=== PATIENT | male | born 1965 | race Caucasian/White ===

== ENCOUNTER 2017-06-13 11:58 | Observation (INO) | payer MEDICARE, SELFPAY | END 2017-06-15 18:15 | disposition home or self-care (01) | PROVIDERS: Admitting Provider Family Medicine; Emergency Provider Emergency Medicine; Family Provider Family Medicine; Visit Provider Family Medicine | DX: J18.9 Pneumonia, unspecified organism (principal); R06.09 Other forms of dyspnea; S22.42XA Multiple fractures of ribs, left side, initial encounter for closed fracture; W18.30XA Fall on same level, unspecified, initial encounter; I95.9 Hypotension, unspecified; I69.398 Other sequelae of cerebral infarction; Z86.718 Personal history of other venous thrombosis and embolism; Z79.01 Long term (current) use of anticoagulants | CPT/HCPCS: G8990; G8991; G8992; 36415; 70450; 71101; 72125; 72170; 73030; 80048; 80053; 80185; 82272; 83605; 85025; 85610; 86738; 87040; 87486; 87581; 87633; 87798; 93005; 94640; 94760; 96365; 96366; 96375; 97116; 97162; 99285; G0328; G0378 ==

== ENCOUNTER 2017-07-10 11:08 | Inpatient (IN) | payer MEDICARE, SELFPAY ==
[2017-07-10 09:43] VITALS: BMI 26.4
[2017-07-10 09:49] VITALS: BP 125/83; PULSE 107; RESP 18; TEMP 36.9; O2SAT 94; BMI 25.7
--- NOTE | 2017-07-10 10:06 | XR_ITS ---
XR chest 2V HISTORY: ITS.REASON: weakness ORDERING PHYSICIAN: Guru Islas MD PATIENT AGE: 51 years COMPARISON: 06/13/2017 FINDINGS: The cardiomediastinal silhouette and pulmonary vascularity are within normal limits. There are atelectatic changes in the right lung base with slightly elevated right hemidiaphragm. This was present previously. Atelectasis or infiltrate is present in the left lower lobe and has developed since the previous exam.. There is exaggeration of thoracic kyphosis with mild wedging of several dorsal vertebral bodies at T5-T10 age-indeterminate possibly chronic. No previous exams are available for comparison. There is moderate wedging involving what appears to represent L1 which appears increased compared to 10/15/2015.. IMPRESSION: 1. Atelectasis or infiltrate in the lingula with chronic atelectatic changes in the right lower lobe. 2. Multiple wedge compression changes of the thoracic lumbar spine age indeterminate
--- NOTE | 2017-07-10 10:06 | CT_ITS ---
CT head/brain wo con HISTORY: Weakness, falling, history of stroke ORDERING PHYSICIAN: Guru Islas MD PATIENT AGE: 51 years COMPARISON: 06/13/2017 TECHNIQUE: Axial images obtained without contrast. Brain and bone windows reviewed. FINDINGS: No midline shift, mass effect, intracranial hemorrhage, hydrocephalus, or extra-axial fluid collection is evident. There is mild diffuse atrophy. Encephalomalacia changes are present in the left temporal and frontal lobe similar to the previous exam. There are mild encephalomalacic changes in the right frontal lobe. No intra or extra-axial hemorrhage is evident. There are postsurgical changes in the left facial bones with thickening of the left maxillary sinus. IMPRESSION: 1. No acute intracranial findings. 2. Encephalomalacic changes on the left consistent with old infarction. 3. Postsurgical changes of left facial bones with mucosal thickening of the left maxillary sinus
--- NOTE | 2017-07-10 10:13 | HMH.EDWEAK ---
ED Disposition Clinical Impression: Dehydration, Atelectasis of both lungs, Weakness, Elevated CK Disposition: Still a Patient Condition on Discharge: Good Referrals: Abelino Waggoner [Primary Care Provider] - Guru Islas MD [Staff Physician] - - Critical Care Critical Care Time: No Attestation: On , the high probability of a clinically significant, sudden or life threatening deterioration of the following system(s) required my full and direct attention, intervention and personal management. The time I documented below is in addition to time spent performing reported procedures but includes the following listed in this critical care notation. Medical Decision Making - Medical Records Medical records reviewed: Yes: I reviewed the patient's medical records. Vital Signs: 07/10/17 09:49 Temperature 98.5 F Temperature Source Oral Pulse Rate [Right Brachial] 107 H Respiratory Rate 18 Blood Pressure [Right Arm] 125/83 Blood Pressure Mean [Right Arm] 97 Blood Pressure Source [Right Arm] Automatic Cuff Blood Pressure Position [Right Arm] Sitting 02 Sat by Pulse Oximetry 94 L Oxygen Delivery Method Room Air - Lab Data Lab results reviewed: Yes: I reviewed the patient's lab results. Lab Results 07/10/17 10:00: PT 30.4 H, INR 2.79 H 07/10/17 10:06: Specimen Source R radial, O2 % Room air, ABG pH 7.42, ABG pCO2 33.1 L, ABG pO2 66.7 L, ABG HCO3 21.1 L, ABG Total CO2 22.1 L, ABG O2 Saturation 94, ABG Base Excess -3.3 L, Anastacio Test Acceptable 07/10/17 10:06: WBC 13.9 H, RBC 5.31, Hgb 15.2, Hct 45.3, MCV 85.1, MCH 28.5, MCHC 33.5, RDW 14.0, Plt Count 217, MPV 8.0, Neut % (Auto) 88.0 H, Lymph % (Auto) 5.5 L, [place] % (Auto) 5.9, Eos % (Auto) 0.5, Baso % (Auto) 0.2, Neut # (Auto) 12.2 H, Lymph # (Auto) 0.8, [place] # (Auto) 0.8, Eos # (Auto) 0.1, Baso # (Auto) 0.0, Total Counted 100, Neutrophils % (Manual) 85 H, Lymphocytes % (Manual) 9 L, Monocytes % (Manual) 6, Platelet Estimate Normal, RBC Morphology Normal 07/10/17 10:20: Sodium 147 H, Potassium 3.7, Chloride 111 H, Carbon Dioxide 28, Anion Gap 11.7, BUN 19 H, Creatinine 1.25, Estimated Creat Clear 83, Estimated GFR 60, Est GFR ( Amer) 73, Glucose 71 L, Calcium 8.6, Total Bilirubin 0.4, AST 33, ALT 35, Alkaline Phosphatase 384 H, Total Creatine Kinase 1327 H*, CK-MB (CK-2) < 0.5, CK-MB (CK-2) Rel Index 0.0, Troponin I < 0.02, Total Protein 7.7, Albumin 3.5, Globulin 4.2 H, Albumin/Globulin Ratio 0.8 L, Phenytoin 9.0 L 07/10/17 11:10: Urine Color Yellow, Urine Appearance Clear, Urine pH 7.0, Ur Specific [place] 1.020, Urine Protein Trace, Urine Glucose (UA) Negative, Urine Ketones Negative, Urine Blood 1+, Urine Nitrate Negative, Urine Bilirubin Negative, Urine Urobilinogen 0.2, Ur Leukocyte Esterase Negative, Urine RBC None, Urine WBC None, Ur Squamous Epith Cells Occasional, Urine Bacteria Trace Result diagrams: 07/10/17 10:06 07/10/17 10:20 Orders (Tests/Meds): ED MEDICATIONS Generic Name Dose Route Start Last Admin Trade Name Freq PRN Reason Stop Dose Admin Ceftriaxone Sodium 1 gm/ 50 mls @ 100 mls/hr 07/10/17 12:12 Sodium Chloride IV 07/10/17 12:41 ONCE ONE Discontinued Medications Generic Name Dose Route Start Last Admin Trade Name Freq PRN Reason Stop Dose Admin Sodium Chloride 1,000 mls @ 999 mls/hr 07/10/17 10:15 07/10/17 11:04 Sod Chloride 0.9% 1000ml Bag IV 07/10/17 11:15 999 mls/hr .[id number] BRIAN Administration ORDERS Category Date Time Status CT Request Scan Stat Cat Scan 07/10/17 10:[address] head/brain wo con Stat Cat Scan 07/10/17 10:06 Ordered XR chest 2V Stat Exams 07/10/17 10:06 Taken Lactic Acid Stat Lab 07/10/17 12:11 Ordered Blood Culture Stat Micro 07/10/17 12:11 Ordered ECG Request by /Sri Stat Y 07/10/17 10:06 Ordered - Radiology Data #1 Image(s): Chest Image Reviewed: Yes I reviewed the patient's radiology image Chest x-ray was bibasilar atelectasis cannot exc
--- NOTE | 2017-07-10 10:19 | ED_ITS ---
ED Disposition Clinical Impression: Dehydration, Atelectasis of both lungs, Weakness, Elevated CK Disposition: Still a Patient Condition on Discharge: Good Referrals: Abelino Waggoner [Primary Care Provider] - Guru Islas MD [Staff Physician] - - Critical Care Critical Care Time: No Attestation: On , the high probability of a clinically significant, sudden or life threatening deterioration of the following system(s) required my full and direct attention, intervention and personal management. The time I documented below is in addition to time spent performing reported procedures but includes the following listed in this critical care notation. Medical Decision Making - Medical Records Medical records reviewed: Yes: I reviewed the patient's medical records. Vital Signs: 07/10/17 09:49 Temperature 98.5 F Temperature Source Oral Pulse Rate [Right Brachial] 107 H Respiratory Rate 18 Blood Pressure [Right Arm] 125/83 Blood Pressure Mean [Right Arm] 97 Blood Pressure Source [Right Arm] Automatic Cuff Blood Pressure Position [Right Arm] Sitting 02 Sat by Pulse Oximetry 94 L Oxygen Delivery Method Room Air - Lab Data Lab results reviewed: Yes: I reviewed the patient's lab results. Lab Results 07/10/17 10:00: PT 30.4 H, INR 2.79 H 07/10/17 10:06: Specimen Source R radial, O2 % Room air, ABG pH 7.42, ABG pCO2 33.1 L, ABG pO2 66.7 L, ABG HCO3 21.1 L, ABG Total CO2 22.1 L, ABG O2 Saturation 94, ABG Base Excess -3.3 L, Anastacio Test Acceptable 07/10/17 10:06: WBC 13.9 H, RBC 5.31, Hgb 15.2, Hct 45.3, MCV 85.1, MCH 28.5, MCHC 33.5, RDW 14.0, Plt Count 217, MPV 8.0, Neut % (Auto) 88.0 H, Lymph % (Auto ) 5.5 L, [place] % (Auto) 5.9, Eos % (Auto) 0.5, Baso % (Auto) 0.2, Neut # (Auto) 12.2 H, Lymph # (Auto) 0.8, [place] # (Auto) 0.8, Eos # (Auto) 0.1, Baso # (Auto) 0.0, Total Counted 100, Neutrophils % (Manual) 85 H, Lymphocytes % (Manual) 9 L , Monocytes % (Manual) 6, Platelet Estimate Normal, RBC Morphology Normal 07/10/17 10:20: Sodium 147 H, Potassium 3.7, Chloride 111 H, Carbon Dioxide 28, Anion Gap 11.7, BUN 19 H, Creatinine 1.25, Estimated Creat Clear 83, Estimated GFR 60, Est GFR ( Amer) 73, Glucose 71 L, Calcium 8.6, Total Bilirubin 0.4, AST 33, ALT 35, Alkaline Phosphatase 384 H, Total Creatine Kinase 1327 H*, CK-MB (CK-2) < 0.5, CK-MB (CK-2) Rel Index 0.0, Troponin I < 0.02, Total Protein 7.7, Albumin 3.5, Globulin 4.2 H, Albumin/Globulin Ratio 0.8 L, Phenytoin 9.0 L 07/10/17 11:10: Urine Color Yellow, Urine Appearance Clear, Urine pH 7.0, Ur Specific [place] 1.020, Urine Protein Trace, Urine Glucose (UA) Negative, Urine Ketones Negative, Urine Blood 1+, Urine Nitrate Negative, Urine Bilirubin Negative, Urine Urobilinogen 0.2, Ur Leukocyte Esterase Negative, Urine RBC None , Urine WBC None, Ur Squamous Epith Cells Occasional, Urine Bacteria Trace Result diagrams: 07/10/17 10:06 07/10/17 10:20 Orders (Tests/Meds): ED MEDICATIONS Generic Name Dose Route Start Last Admin Trade Name Freq PRN Reason Stop Dose Admin Ceftriaxone Sodium 1 gm/ 50 mls @ 100 mls/hr 07/10/17 12:12 Sodium Chloride IV 07/10/17 12:41 ONCE ONE Discontinued Medications Generic Name Dose Route Start Last Admin Trade Name Freq PRN Reason Stop Dose Admin Sodium Chloride 1,000 mls @ 999 mls/hr 07/10/17 10:15 07/10/17 11:04 Sod Chloride 0.9% 1000ml Bag IV 07/10/17 11:15 999 mls/hr
[2017-07-10 10:35] LABS: Basophils % 0.2 % (0.1-2.0); Eosinophils # 0.1 K/mm3 (0.0-0.4); Eosinophils % 0.5 % (0.1-12.0); Hematocrit 45.3 % (42.0-52.0); Hemoglobin 15.2 g/dL (14.1-18.0); Lymphocytes # 0.8 K/mm3 (0.7-4.5); Lymphocytes % 5.5 K/mm3 (10-50); Mean Corpuscular HGB Conc 33.5 g/dL (31.8-35.4); Mean Corpuscular Hemoglobin 28.5 pg (27.0-31.2); Mean Corpuscular Volume 85.1 fl (80-94); Monocytes # 0.8 K/mm3 (0.1-1.0); Monocytes % 5.9 % (1.7-9.3); Neutrophils # 12.2 K/mm3 (1.8-7.8); Platelet Count 217 K/mm3 (142-424); Red Blood Count 5.31 M/mm3 (4.60-6.20); White Blood Count 13.9 K/mm3 (4.8-10.8)
[2017-07-10 10:37] LABS: MANUAL DIFFERENTIAL MANUAL DIFFERENTIAL (MANUAL DIFF)
[2017-07-10 10:42] LABS: INR 2.79 (0.9-1.1); Prothrombin Time 30.4 seconds (9.4-11.8)
[2017-07-10 11:01] LABS: Lymphocytes % 9 % (10-50); Monocytes % 6 % (2-9); Neutrophils % 85 % (42-76); Platelet Estimate Normal; RBC Morphology Normal; Total Cells Counted 100
[2017-07-10 11:07] LABS: ABG Base Excess -3.3 mmol/L (-2.4-2.3); ABG HCO3 21.1 mmhg (22.0-26.0); ABG Oxygen Saturation 94 % (90-100); ABG PCO2 33.1 mmhg (35.0-45.0); ABG PH 7.42 mmol/L (7.35-7.45); ABG PO2 66.7 mmhg (80-100); ABG TCO2 22.1 mmhg (23-27)
[2017-07-10 11:09] LABS: Allen's Test ACCEPTABLE; Oxygen ROOM AIR %; Source R RADIAL
[2017-07-10 11:24] LABS: Appearance,Urine CLEAR (Clear); Bilirubin,Urine Negative (Negative); Blood, Urine 1+ (Negative); Color,Urine YELLOW (Yellow); Glucose,Urine (UA) Negative (Negative); Ketones,Urine Negative (Negative); Leukocyte Esterase,Urine Negative (Negative); Microscopic, Urine URINE MICROSCOPIC (MICROSCOPIC); Nitrate,Urine Negative (Negative); Protein,Urine TRACE (Negative); Urobilinogen,Urine 0.2 EU/dl (0.2)
[2017-07-10 11:31] LABS: Alanine Aminotransferase 35 U/L (12-78); Albumin Level 3.5 gm/dL (3.4-5.0); Albumin/Globulin Ratio 0.8 (1.1-1.8); Alkaline Phosphatase 384 U/L (46-116); Anion Gap 11.7 mEq/L (5-15); Bilirubin,Total 0.4 mg/dL (0.2-1.0); Blood Urea Nitrogen 19 mg/dL (7-18); Calcium 8.6 mg/dL (8.5-10.1); Carbon Dioxide 28 mmol/L (21.0-32.0); Chloride 111 mmol/L (98-107); Creatinine Clearance Estimated 83 mL/min (0-300); Creatinine,Serum 1.25 mg/dL (0.70-1.30); Estimated Glomerular Filt Rate 60 ml/min (>60); GFR (African American) 73 ML/MIN (>60); Globulin 4.2 gm/dl (1.3-3.2); Glucose 71 mg/dL (74-106); Sodium 147 mmol/L (136-145); Total Protein,Serum 7.7 gm/dL (6.4-8.2); Troponin I < 0.02 ng/ml (0.00-0.06)
[2017-07-10 11:33] LABS: Creatine Kinase 1327 U/L (39-308); Creatine Kinase MB < 0.5 mg/ml (0.0-3.6); Potassium 3.7 mmoL/L (3.5-5.1)
[2017-07-10 11:34] LABS: Aspartate Amino Transferase 33 U/L (15-37)
[2017-07-10 11:46] LABS: Bacteria,Urine Trace /lpf; Squamous Epithelial Cell,Urine Occasional #/hpf (0-5)
[2017-07-10 12:45] VITALS: BP 132/75; PULSE 72; RESP 18; O2SAT 98
[2017-07-10 12:59] LABS: Lactic Acid 1.6 mmol/L (0.4-2.0)
[2017-07-10 13:09] VITALS: BP 107/69; PULSE 103; RESP 18; TEMP 36.9; O2SAT 98; BMI 24.8
[2017-07-10 13:54] LABS: Troponin I < 0.02 ng/ml (0.00-0.06)
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
[2017-07-10 19:26] LABS: Troponin I < 0.02 ng/ml (0.00-0.06)
[2017-07-10 20:00] VITALS: BP 93/59; PULSE 94; RESP 18; TEMP 36.4; O2SAT 100
[2017-07-10 21:14] LABS: Mycoplasma Pneumo IGM (Rapid) Non-Reactive (Non-Reactiv)
[2017-07-10 23:53] VITALS: PULSE 88
[2017-07-10 23:54] VITALS: PULSE 88
[2017-07-11] VITALS (8 sets, daily range): BP systolic 94–106; BP diastolic 60–68; PULSE 75–96; RESP 16–20; TEMP 36.3–36.7; O2SAT 95–100; BMI 24.9
--- NOTE | 2017-07-11 04:44 | PC.NURSE ---
PT HAS SLEPT. WEARING HOME CPAP. NO COMPLAINTS. VOIDING PER URINAL.
[2017-07-11 06:57] LABS: Anion Gap 11.6 mEq/L (5-15); Basophils % 0.4 % (0.1-2.0); Blood Urea Nitrogen 14 mg/dL (7-18); Carbon Dioxide 26 mmol/L (21.0-32.0); Chloride 113 mmol/L (98-107); Creatinine Clearance Estimated 106 mL/min (0-300); Creatinine,Serum 0.97 mg/dL (0.70-1.30); Eosinophils # 0.2 K/mm3 (0.0-0.4); Estimated Glomerular Filt Rate 81 ml/min (>60); GFR (African American) 98 ML/MIN (>60); Glucose 102 mg/dL (74-106); Lymphocytes # 1.3 K/mm3 (0.7-4.5); Lymphocytes % 15.3 K/mm3 (10-50); Mean Corpuscular HGB Conc 33.7 g/dL (31.8-35.4); Mean Corpuscular Hemoglobin 28.2 pg (27.0-31.2); Mean Corpuscular Volume 83.9 fl (80-94); Monocytes # 0.6 K/mm3 (0.1-1.0); Monocytes % 6.6 % (1.7-9.3); Neutrophils # 6.6 K/mm3 (1.8-7.8); Neutrophils % 75.6 % (37.0-80.0); Platelet Count 192 K/mm3 (142-424); Potassium 3.6 mmoL/L (3.5-5.1); Red Blood Count 4.53 M/mm3 (4.60-6.20); Red Cell Distribution Width 14.2 % (11.5-17.5); Sodium 147 mmol/L (136-145); White Blood Count 8.7 K/mm3 (4.8-10.8)
[2017-07-11 06:58] LABS: INR 3.25 (0.9-1.1); Prothrombin Time 35.5 seconds (9.4-11.8)
--- NOTE | 2017-07-11 07:10 | HMH.PHAVTE ---
[facility] Pharmacy VTE Monitoring - Patient Demographics Admission date: 07/11/17 Report Date: 07/11/17 Time: 07:10 Allergies/Adverse Reactions: Patient Allergies No Known Allergies Allergy (Verified 07/10/17 10:49) Height: 1.85 m Weight: 85.389 kg Patient Problems: Current Active Problems Dehydration (Acute) Atelectasis of both lungs (Acute) Weakness (Acute) Elevated CK (Acute) Pneumonia (Acute) Seizure disorder (Chronic) History of traumatic brain injury (Acute) History of DVT (deep vein thrombosis) (Chronic) Falls (Acute) - VTE Risk Labs: VTE Related Lab Results Hgb 15.2 g/dL (14.1-18.0) 07/10/17 10:06 Hct 45.3 % (42.0-52.0) 07/10/17 10:06 Plt Count 217 K/mm3 (142-424) 07/10/17 10:06 PT 35.5 seconds (9.4-11.8) H 07/11/17 06:05 INR 3.25 (0.9-1.1) H 07/11/17 06:05 BUN 14 mg/dL (7-18) D 07/11/17 06:05 Creatinine 0.97 mg/dL (0.70-1.30) D 07/11/17 06:05 Estimated Creat Clear 106 mL/min (0-300) 07/11/17 06:05 Was VTE Risk Assessment Performed: Yes VTE Score: 1 - Prophylaxis VTE Prophylaxis Ordered?: Yes Pharmacologic Type: Warfarin - VTE Diagnosis Confirmed Treatment or plan recommended: Continue Current Treatment
[2017-07-11 07:19] LABS: Hemoglobin 12.7 g/dL (14.1-18.0)
--- NOTE | 2017-07-11 09:22 | HMH.ACPN2 ---
<Zuly Goodman - Last Filed: 07/11/17 09:30> Internal Medicine - PN: Subj *Date: 07/11/17 *Time: 09:30 Interval history: Patient states he slept; uses CPAP; eating without problems; voiding QS; has not been OOB; Sister called ([phone]) and would like to have additional testing done-Barium Swallow and speech eval Exam Vital signs and Labs for Last 24 Hours: Temp Pulse Resp BP Pulse Ox 98.1 F 84 20 104/68 98 07/11/17 08:20 07/11/17 08:20 07/11/17 08:20 07/11/17 08:20 07/11/17 08:20 Laboratory Results - last 24 hr 07/11/17 06:05: PT 35.5 H, INR 3.25 H 07/11/17 06:05: WBC 8.7 D, RBC 4.53 L, Hgb 12.7 L D, Hct 38.0 L, MCV 83.9, MCH 28.2, MCHC 33.7, RDW 14.2, Plt Count 192, MPV 8.0, Neut % (Auto) 75.6, Lymph % (Auto) 15.3, [place] % (Auto) 6.6, Eos % (Auto) 2.0, Baso % (Auto) 0.4, Neut # (Auto) 6.6, Lymph # (Auto) 1.3, [place] # (Auto) 0.6, Eos # (Auto) 0.2, Baso # (Auto) 0.0 07/11/17 06:05: Sodium 147 H, Potassium 3.6, Chloride 113 H, Carbon Dioxide 26, Anion Gap 11.6, BUN 14 D, Creatinine 0.97 D, Estimated Creat Clear 106, Estimated GFR 81, Est GFR ( Amer) 98 D, Glucose 102 D I & O for Last 24 hours: Intake & Output 07/08/17 07/09/17 07/10/17 07/11/17 11:59 11:59 11:59 11:59 Intake Total 1298 / 2019 Balance 1299 / 1369 Weight 188 lb 4.008 oz - Constitutional Comments: NAD - *Routine Respiratory Exam Present: CTA bilaterally. Absent: accessory muscle use - *Routine Cardiovascular Exam Present: RRR - *Routine Abdominal Exam Present: soft, normoactive bowel sounds. Absent: tenderness, distended, guarding - *Routine Extremities Exam Absent: edema, calf tenderness - *Routine Neurological Exam Present: alert, oriented X3 Assessment and Plan (1) Pneumonia Current visit: Yes Status: Acute Category: Medical Code(s): J18.9 - Pneumonia, unspecified organism (2) Seizure disorder Current visit: Yes Status: Chronic Category: Medical Code(s): G40.909 - Epilepsy, unspecified, not intractable, without status epilepticus (3) History of traumatic brain injury Current visit: Yes Status: Acute Category: Medical Code(s): Z87.820 - Personal history of traumatic brain injury (4) History of DVT (deep vein thrombosis) Current visit: Yes Status: Chronic Category: Medical Code(s): Z86.718 - Personal history of other venous thrombosis and embolism (5) Falls Current visit: Yes Status: Acute Category: Medical Code(s): W19.XXXA - Unspecified fall, initial encounter (6) Atelectasis of both lungs Current visit: Yes Status: Acute Category: Medical Code(s): J98.11 - Atelectasis (7) Dehydration Current visit: Yes Status: Acute Category: Medical Code(s): E86.0 - Dehydration (8) Elevated CK Current visit: Yes Status: Acute Category: Medical Code(s): R74.8 - Abnormal levels of other serum enzymes - Assessment and plan all Dx Assessment and Plan for all problems:: Speech eval; continue current care <Guru Islas - Last Filed: 07/11/17 10:34> Internal Medicine - PN: Subj *Date: 07/11/17 *Time: 10:32 Exam Vital signs and Labs for Last 24 Hours: Temp Pulse Resp BP Pulse Ox 98.1 F 84 20 104/68 98 07/11/17 08:20 07/11/17 08:20 07/11/17 08:20 07/11/17 08:20 07/11/17 08:20 Laboratory Results - last 24 hr 07/11/17 06:05: PT 35.5 H, INR 3.25 H 07/11/17 06:05: WBC 8.7 D, RBC 4.53 L, Hgb 12.7 L D, Hct 38.0 L, MCV 83.9, MCH 28.2, MCHC 33.7, RDW 14.2, Plt Count 192, MPV 8.0, Neut % (Auto) 75.6, Lymph % (Auto) 15.3, [place] % (Auto) 6.6, Eos % (Auto) 2.0, Baso % (Auto) 0.4, Neut # (Auto) 6.6, Lymph # (Auto) 1.3, [place] # (Auto) 0.6, Eos # (Auto) 0.2, Baso # (Auto) 0.0 07/11/17 06:05: Sodium 147 H, Potassium 3.6, Chloride 113 H, Carbon Dioxide 26, Anion Gap 11.6, BUN 14 D, Creatinine 0.97 D, Estimated Creat Clear 106, Estimated GFR 81, Est GFR ( Amer) 98 D, Glucose 102 D I & O fo
--- NOTE | 2017-07-11 09:26 | P.PN_ITS ---
<Zuly Goodman - Last Filed: 07/11/17 09:30> Internal Medicine - PN: Subj *Date: 07/11/17 *Time: 09:30 Interval history: Patient states he slept; uses CPAP; eating without problems; voiding QS; has not been OOB; Sister called ([phone]) and would like to have additional testing done-Barium Swallow and speech eval Exam Vital signs and Labs for Last 24 Hours: Temp Pulse Resp BP Pulse Ox 98.1 F 84 20 104/68 98 07/11/17 08:20 07/11/17 08:20 07/11/17 08:20 07/11/17 08:20 07/11/17 08:20 Laboratory Results - last 24 hr 07/11/17 06:05: PT 35.5 H, INR 3.25 H 07/11/17 06:05: WBC 8.7 D, RBC 4.53 L, Hgb 12.7 L D, Hct 38.0 L, MCV 83.9, MCH 28.2, MCHC 33.7, RDW 14.2, Plt Count 192, MPV 8.0, Neut % (Auto) 75.6, Lymph % ( Auto) 15.3, [place] % (Auto) 6.6, Eos % (Auto) 2.0, Baso % (Auto) 0.4, Neut # (Auto ) 6.6, Lymph # (Auto) 1.3, [place] # (Auto) 0.6, Eos # (Auto) 0.2, Baso # (Auto) 0.0 07/11/17 06:05: Sodium 147 H, Potassium 3.6, Chloride 113 H, Carbon Dioxide 26, Anion Gap 11.6, BUN 14 D, Creatinine 0.97 D, Estimated Creat Clear 106, Estimated GFR 81, Est GFR ( Amer) 98 D, Glucose 102 D I & O for Last 24 hours: Intake & Output 07/08/17 07/09/17 07/10/17 07/11/17 11:59 11:59 11:59 11:59 Intake Total 1298 / 2019 Balance 1299 / 1369 Weight 188 lb 4.008 oz - Constitutional Comments: NAD - *Routine Respiratory Exam Present: CTA bilaterally. Absent: accessory muscle use - *Routine Cardiovascular Exam Present: RRR - *Routine Abdominal Exam Present: soft, normoactive bowel sounds. Absent: tenderness, distended, guarding - *Routine Extremities Exam Absent: edema, calf tenderness - *Routine Neurological Exam Present: alert, oriented X3 Assessment and Plan (1) Pneumonia Current visit: Yes Status: Acute Category: Medical Code(s): J18.9 - Pneumonia, unspecified organism (2) Seizure disorder Current visit: Yes Status: Chronic Category: Medical Code(s): G40.909 - Epilepsy, unspecified, not intractable, without status epilepticus (3) History of traumatic brain injury Current visit: Yes Status: Acute Category: Medical Code(s): Z87.820 - Personal history of traumatic brain injury (4) History of DVT (deep vein thrombosis) Current visit: Yes Status: Chronic Category: Medical Code(s): Z86.718 - Personal history of other venous thrombosis and embolism (5) Falls Current visit: Yes Status: Acute Category: Medical Code(s): W19.XXXA - Unspecified fall, initial encounter (6) Atelectasis of both lungs Current visit: Yes Status: Acute Category: Medical Code(s): J98.11 - Atelectasis (7) Dehydration Current visit: Yes Status: Acute Category: Medical Code(s): E86.0 - Dehydration (8) Elevated CK Current visit: Yes Status: Acute Category: Medical Code(s): R74.8 - Abnormal levels of other serum enzymes - Assessment and plan all Dx Assessment and Plan for all problems:: Speech eval; continue current care <Guru Islas - Last Filed: 07/11/17 10:34> Internal Medicine - PN: Subj *Date: 07/11/17 *Time: 10:32 Exam Vital signs and Labs for Last 24 Hours: Temp Pulse Resp BP Pulse Ox 98.1 F 84 20 104/68 98 07/11/17 08:20 07/11/17 08:20 07/11/17 08:20 07/11/17 08:20 07/11/17 08:20 Laboratory Results - last 24 h
--- NOTE | 2017-07-11 09:44 | XR_ITS ---
XR chest 2V HISTORY: Follow-up pneumonia ITS.REASON: repeat for pneumonia ORDERING PHYSICIAN: Guru Islas MD PATIENT AGE: 51 years COMPARISON: 07/10/2017 FINDINGS: The cardiomediastinal silhouette and pulmonary vascularity are within normal limits. Increased density in the lingula once again noted . This is somewhat more dense when compared to the previous exam and has more the appearance of atelectasis. 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 IMPRESSION: Increasing atelectatic change in the lingula
--- NOTE | 2017-07-11 11:04 | HMH.SLDYSPHA ---
Speech & Language Evaluation Speech/Language Dysphagia Evaluation Start: 07/11/17 10:19 Freq: ONCE Status: Active Protocol: Document 07/11/17 10:19 [email or web address] (Rec: 07/11/17 10:58 DRAKE [id number]) Dysphagia Assess/Goals/Plan Assessment Date of Evaluation: 07/11/17 Evaluation Type Initial Certification Assessment/Problems Difficulty swallowing. Does Patient Qualify for Service No Qualify/Failure Comment No clinical signs or symptoms of dysphagia at bedside. Recommendations PHYSICIAN CERTIFICATION: The specified therapy services are required, authorized, and reviewed every 30 days. Diet Recommendations Normal Liquid Type Recommendations Normal/Thin SL Swallow Guidelines Standard Aspiration Prec. Plan Pt/Guardian verbally ack understanding Yes of dx/prognosis/goals Pt/Guardian verbally ack understanding Yes of/consent to tx prog G -code Required Yes G-CODES ST Current Status [id number] ST Current Status Modifier CI-At least 1% but less than 20% impaired, limited or restricted ST Goal Status [id number] ST Goal Status Modifier CI-At least 1% but less than 20% impaired, limited or restricted Education Instructions provided Pt and RN were advised to communicate any difficulties with eating/swallowing to Speech Therapists if further concerns arise. Pt. should eat and drink upright at 90 degree angle, seated on bedside or in a chair. Pt/Caregiver able to recall information Able to recall/restate Reinforcement needed No Speech & Language HPI History Present Illness Description of Patient Problem Pt. was referred for a clinical evaluation of swallow at bedside due to concerns of possible aspiration. Pt/Caregiver Concerns Pt reports he eats and drinks a normal diet and liquids at home. He was alert and oriented during assessment. Family has concerns of possible aspiration. Rehab Services Assessed Speech therapy Is this evaluation r/t stroke? No Hearing Previous Hearing Test No Comment Hearing appears to be Within Functional limits. Vision Visual Difficulty Adequate L
--- NOTE | 2017-07-11 11:55 | SW/DCPLANNER ---
Addendum entered by Shazia Bolaños 07/11/17 15:59: [facility] can not accept this patient at this time, [facility] is still reviewing patient information. I have spoke with patients sister (NOT SO) again regarding situation. Sister has requested that patient information be faxed to [facility] next then [facility] and [facility] if nothing else is available. I will follow up with these facilities tomorrow. Patient information has been faxed to [facility]. Original Note: Spoke with this patients significant other regarding discharge plans. SO has stated that patient just started with [facility] but she believes it would be beneficial for patient to receive daily therapy at this time and does think placement would be the best option for this patient. Patient information has been faxed to [facility], [facility] does not have any beds available at this time. I have also contacted [facility] waiting to hear back from them. I will follow up with facilities and SO this evening to assist with discharge planning.
--- NOTE | 2017-07-11 15:56 | PC.NURSE ---
PT IS SITTING UP IN THE CHAIR AT THIS TIME WITH NO COMPLAINTS OF DISCOMFORT. PT WAS ABLE TO TOLERATED GETTING OOB WITH 1 ASSIST. EATING WELL. SPEECH CAME TO EVALUATE PT AT BEDSIDE AND SHE STATED THAT PT WAS ABLE TO CONTINUE HIS CURRENT DIET. PT HAS BEEN ALERT AND ORIENTED X3. I TALKED WITH THE SISTER EARLIER THIS MORNING AND SHE STATED PT MIGHT NEED SOME EXTRA ENCOURAGEMENT TO DO ANY ACTIVITY BUT PT WAS OKAY WITH SITTING UP IN THE CHAIR. 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 WILL CONTINUE TO MONITOR.
--- NOTE | 2017-07-11 18:55 | PC.NURSE ---
I WILL PASS IN REPORT THAT THE NURSE TAKING CARE OF PT TOMORROW NEEDS TO ASK IF HE WANTS PT TO HAVE A CARDIOLOGY CONSULT.
--- NOTE | 2017-07-11 19:15 | PC.NURSE ---
PT FULL CODE, REPORT RECEIVED FROM KAYLYN
[2017-07-12] VITALS (8 sets, daily range): BP systolic 112–125; BP diastolic 60–84; PULSE 88–110; RESP 17–20; TEMP 36.6–36.8; O2SAT 92–98
--- NOTE | 2017-07-12 04:23 | PC.NURSE ---
PT ALERT AND ORIENTED; PT NOT SEEN BY CARDIOLOGY YESTERDAY. DR. ANN STATED NOT MAKE PT NPO, LET DR. HUANG ADDRESS WHETHER STILL WANTS CARDIOLOGY TO SEE PT. NO C/O CHEST PAIN OR SOA; PT WEARING CPAP FROM HOME SINCE HS. NO C/O ANY PAIN OR DISCOMFORT. STILL NEED SPUTUM. PT SLEPT LONG INTERVALS. SEIZURE PADS IN PLACE, NO SEIZURES NOTED. IV INFUSING NS@100/HR ALSO IV ABX; RESPIRATION EVEN AND UNLABORED. BREATH SOUNDS CLEAR. PT STABLE. WILL CONTINUE TO MONITOR. REPORT TO BE GIVEN TO ONCOMING NURSE.
[2017-07-12 06:52] LABS: INR 1.89 (0.9-1.1); Prothrombin Time 20.5 seconds (9.4-11.8)
--- NOTE | 2017-07-12 07:38 | PC.NURSE ---
REPORT GIVEN TO Gemma VALENZUELA W/C
--- NOTE | 2017-07-12 08:02 | HMH.ACPN2 ---
<Shabana Ruby - Last Filed: 07/12/17 08:02> Internal Medicine - PN: Subj *Date: 07/12/17 *Time: 08:02 Interval history: Pt states he is feeling much better today. He denies any pain. He states he slept well and ate most of his breakfast. Exam Vital signs and Labs for Last 24 Hours: Temp Pulse Resp BP Pulse Ox 98.0 F 93 H 17 119/84 94 L 07/12/17 04:00 07/12/17 06:35 07/12/17 04:00 07/12/17 04:00 07/12/17 06:35 Laboratory Results - last 24 hr 07/12/17 06:35: PT 20.5 H, INR 1.89 H I & O for Last 24 hours: Intake & Output 07/09/17 07/10/17 07/11/17 07/12/17 11:59 11:59 11:59 11:59 Intake Total 1299 / 2019 3998 / 3998 Output Total 1600 / 1600 Balance 1299 / 1369 2398 / 2398 Weight 188 lb 4.008 oz 188 lb 4.008 oz - Constitutional no acute distress - *Routine Cardiovascular Exam Present: RRR - *Routine Abdominal Exam Present: soft, normoactive bowel sounds. Absent: tenderness - *Routine Extremities Exam Absent: edema Assessment and Plan (1) Pneumonia Current visit: Yes Status: Acute Category: Medical Code(s): J18.9 - Pneumonia, unspecified organism (2) Seizure disorder Current visit: Yes Status: Chronic Category: Medical Code(s): G40.909 - Epilepsy, unspecified, not intractable, without status epilepticus (3) History of traumatic brain injury Current visit: Yes Status: Acute Category: Medical Code(s): Z87.820 - Personal history of traumatic brain injury (4) History of DVT (deep vein thrombosis) Current visit: Yes Status: Chronic Category: Medical Code(s): Z86.718 - Personal history of other venous thrombosis and embolism (5) Falls Current visit: Yes Status: Acute Category: Medical Code(s): W19.XXXA - Unspecified fall, initial encounter (6) Atelectasis of both lungs Current visit: Yes Status: Acute Category: Medical Code(s): J98.11 - Atelectasis (7) Dehydration Current visit: Yes Status: Acute Category: Medical Code(s): E86.0 - Dehydration (8) Elevated CK Current visit: Yes Status: Acute Category: Medical Code(s): R74.8 - Abnormal levels of other serum enzymes - Assessment and plan all Dx Assessment and Plan for all problems:: Patient is improving. We will get labs this morning and saline lock. Will get a PT evaluation today. Possible discharge to [facility] tomorrow. <Guru Islas - Last Filed: 07/12/17 13:47> Internal Medicine - PN: Subj *Date: 07/12/17 *Time: 13:45 Exam Vital signs and Labs for Last 24 Hours: Temp Pulse Resp BP Pulse Ox 97.9 F 95 H 20 112/60 92 L 07/12/17 08:53 07/12/17 11:49 07/12/17 08:53 07/12/17 08:53 07/12/17 08:53 Laboratory Results - last 24 hr 07/12/17 06:35: PT 20.5 H, INR 1.89 H 07/12/17 08:05: WBC 6.5 D, RBC 4.45 L, Hgb 12.6 L, Hct 37.3 L, MCV 83.8, MCH 28.3, MCHC 33.8, RDW 14.1, Plt Count 167, MPV 8.2, Neut % (Auto) 71.3, Lymph % (Auto) 18.7, [place] % (Auto) 6.5, Eos % (Auto) 2.8, Baso % (Auto) 0.6, Neut # (Auto) 4.6, Lymph # (Auto) 1.2, [place] # (Auto) 0.4, Eos # (Auto) 0.2, Baso # (Auto) 0.0 07/12/17 08:05: Total Creatine Kinase 1501 H* I & O for Last 24 hours: Intake & Output 07/10/17 07/11/17 07/12/17 07/13/17 11:59 11:59 11:59 11:59 Intake Total 2018 4238 / 4238 Output Total 650 / 650 2650 / 2650 Balance 1369 / 1369 1588 / 1588 Weight 188 lb 4.008 oz 188 lb 4.008 oz Assessment and Plan (1) Pneumonia Current visit: Yes Status: Acute Category: Medical Code(s): J18.9 - Pneumonia, unspecified organism (2) Seizure disorder Current visit: Yes Status: Chronic Category: Medical Code(s): G40.909 - Epilepsy, unspecified, not intractable, without status epilepticus (3) History of traumatic brain injury Current visit: Yes Status: Acute Category: Medical Code(s): Z87.820 - Personal history of traumatic brain injury (4) History of DVT (deep vein thrombosis)
[2017-07-12 08:32] LABS: Basophils % 0.6 % (0.1-2.0); Eosinophils # 0.2 K/mm3 (0.0-0.4); Eosinophils % 2.8 % (0.1-12.0); Hematocrit 37.3 % (42.0-52.0); Hemoglobin 12.6 g/dL (14.1-18.0); Lymphocytes # 1.2 K/mm3 (0.7-4.5); Lymphocytes % 18.7 K/mm3 (10-50); Mean Corpuscular HGB Conc 33.8 g/dL (31.8-35.4); Mean Corpuscular Hemoglobin 28.3 pg (27.0-31.2); Mean Corpuscular Volume 83.8 fl (80-94); Mean Platelet Volume 8.2 fl (7.4-10.4); Monocytes # 0.4 K/mm3 (0.1-1.0); Monocytes % 6.5 % (1.7-9.3); Neutrophils # 4.6 K/mm3 (1.8-7.8); Neutrophils % 71.3 % (37.0-80.0); Platelet Count 167 K/mm3 (142-424); Red Blood Count 4.45 M/mm3 (4.60-6.20); Red Cell Distribution Width 14.1 % (11.5-17.5); White Blood Count 6.5 K/mm3 (4.8-10.8)
[2017-07-12 09:14] LABS: Creatine Kinase 1501 U/L (39-308)
--- NOTE | 2017-07-12 09:49 | SW/DCPLANNER ---
CALLED [facility] THIS MORNING AND SPOKE WITH JAIDEN, LEAD [employer] MILL TENDER AND SHE SAID THEY WOULD TAKE MR SARGENT A SKILLED MEDICARE A PATIENT FOR SOME SKILLED CARE.. WILL NOTIFY CAREGIVER THAT HE WILL BE READY IN THE MORNING PENDING NOTHING ACUTE HAPPENS...CM WILL FOLLOW..
--- NOTE | 2017-07-12 10:39 | PC.NURSE ---
Addendum entered by Nadia Ashley RN 07/12/17 10:41: Rachel comes back to phone and reports this is not a critical lab to report. on phone to notify bruno kimbrough at this time. left message with shanique. Original Note: rechecking chart at this time. see total creatinine kinase value in what appears to be a critical vaue of 1501. contacted lab at this time. spoke with rachel. rachel to ask tech and get back to me if lab is critical or not.
--- NOTE | 2017-07-12 10:57 | HMH.PTEV ---
Physical Therapy Evaluation Rehab PT IP Evaluation Start: 07/12/17 08:00 Freq: ONCE Status: Active Protocol: Document 07/12/17 09:45 PHORNE (Rec: 07/12/17 10:57 PHORNE [id number]) Subjective/History History History 51 yom adm to [facility] with weakness and frequent falls, possibly due to intermittent hypotension per family. Pt has hx of TBI and seizure disorder. Subjective Subjective Pt with no c/o this am. Rehab PT IP Eval Objective Appearance Patient Behavior Appropriate Patient Orientation Person Place Difficulty following instructions none Speech Pattern Clear Appropriate Delayed Ambulation Patient Able to Ambulate Yes Ambulation Observation IP General Gait Pattern Observation Wide Based Gait Shuffling Step Ambulation Distance (feet) 100 Ambulation Assistive Device Rolling Walker Balance Ability to Arise Able, uses arms to help Sitting Balance Steady, safe Standing Balance Steady, wide stance Dynamic Sitting Balance Ability Good Dynamic Standing Balance Ability Fair Transfers Bed Transfer Ability Contact Guard/Hand Hold Chair Transfer Ability Contact Guard/Hand Hold Sit to Stand Bed Transfer Ability Contact Guard/Hand Hold Sit to Stand Chair Transfer Ability Contact Guard/Hand Hold MMT All Extremities PT MMT WFL Rehab PT IP prob,goals,plan Problems Date of Evaluation: 07/12/17 PT IP Problems Transfers Gait Rehab Potential Rehab Potential Good Equipment Needs Assistive Devices Rolling / Wheeled Walker Plan PT Intervention Plan Transfers Gait Therapeutic Exercise PT Plan Frequency BID Duration LOS Discharge Goals Bed Transfer Ability Supervision/Stand by Sit to Stand Chair Transfer Ability Supervision/Stand by Ambulation Assistive Device Rolling Walker Ambulation Distance (feet) 200 Discharge Plan PT Discharge Plan Pt is most appropriate for rehab placement at this time. G -code Required Yes Eval Complexity Eval Charge Codes 38774 - Moderate Complexity G Codes PT Current Status Mobility PT Current Status Modifier CK-At least 40% but less than 60% impaired, limit
--- NOTE | 2017-07-12 15:54 | SW/DCPLANNER ---
Patients sister will be here tomorrow around 1:30pm to transport this patient to [facility]. I have also spoke with Heaven from [facility] to confirm that patient would not be arriving till later in the evening....Heaven stated that this would be okay. I will fax discharge summary once available tomorrow pending patient has no setbacks this evening.
--- NOTE | 2017-07-12 17:56 | PC.NURSE ---
dr lloyd rounds this evening. notified at 1730 that pt has pulled out his IV at 1725. okays to leave IV out and changes atb's to po.
[2017-07-13 04:00] VITALS: BP 135/77; PULSE 101; RESP 20; TEMP 36.8; O2SAT 98
--- NOTE | 2017-07-13 05:21 | PC.NURSE ---
PT SLEPT LONG INTERVALS. CPAP ON WHILE SLEEPING. NO COMPLAINTS REPORTED. RESPIRATIONS EVEN AND UNLABORED. BREATH SOUNDS CLEAR. LABS ORDERED FOR THIS MORNING. PLAN IS D/C TO [facility] FOR SHORT-TERM REHAB TODAY. PT STABLE. WILL CONTINUE TO MONITOR. REPORT TO BE GIVEN TO ONCOMING NURSE.
[2017-07-13 06:23] VITALS: PULSE 88; O2SAT 94
[2017-07-13 07:11] LABS: Anion Gap 9.8 mEq/L (5-15); Blood Urea Nitrogen 10 mg/dL (7-18); Carbon Dioxide 28 mmol/L (21.0-32.0); Chloride 106 mmol/L (98-107); Creatine Kinase 992 U/L (39-308); Creatinine Clearance Estimated 105 mL/min (0-300); Creatinine,Serum 0.98 mg/dL (0.70-1.30); Estimated Glomerular Filt Rate 80 ml/min (>60); GFR (African American) 97 ML/MIN (>60); Glucose 102 mg/dL (74-106); Potassium 3.8 mmoL/L (3.5-5.1); Sodium 140 mmol/L (136-145)
--- NOTE | 2017-07-13 07:26 | PC.NURSE ---
REPORT GIVEN TO Erasmo IZQUIERDO W/C
[2017-07-13 07:40] VITALS: BP 105/59; PULSE 101; RESP 20; TEMP 36.8; O2SAT 95
[2017-07-13 08:00] VITALS: O2SAT 98
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
--- NOTE | 2017-07-13 13:09 | PC.NURSE ---
Report given to Toma at [facility].
== END 2017-07-13 14:38 | disposition home or self-care (01) | DRG 194 ==
LOC: ER 11:28 → 2ND 12:16
PROVIDERS: Nurse Practitioner Family; Admitting Provider Family Medicine; Emergency Provider Emergency Medicine; Family Provider Family Medicine; PCP Family Medicine; Visit Provider Family Medicine
DX: J18.9 Pneumonia, unspecified organism (principal); I69.351 Hemiplegia and hemiparesis following cerebral infarction affecting right dominant side; E86.0 Dehydration; I10 Essential (primary) hypertension; Z86.718 Personal history of other venous thrombosis and embolism; Z87.820 Personal history of traumatic brain injury; I69.398 Other sequelae of cerebral infarction; Z91.81 History of falling; Z79.01 Long term (current) use of anticoagulants; G40.909 Epilepsy, unspecified, not intractable, without status epilepticus
CPT/HCPCS: 36415; 70450; 71046; 80048; 80053; 80185; 81001; 82550; 82553; 82803; 83605; 84484; 85007; 85025; 85610; 86738; 87040; 92610; 93005; 93041; 94640; 94761; 97162; 99284; G0378; J0456

== ENCOUNTER 2017-08-24 02:57 | Observation (INO) | payer MEDICARE, SELFPAY ==
[2017-08-24 03:00] VITALS: BP 137/94; BP 139/89; PULSE 94; RESP 12; RESP 14; TEMP 36.9; O2SAT 95; O2SAT 96; BMI 27.2
--- NOTE | 2017-08-24 03:16 | CT_ITS ---
CT head/brain wo con COMPARISON: MRI scan of brain 04/22/2013 HISTORY: Un witnessed fall, altered mental status bruising and swelling right side of chest and abdomen TECHNIQUE: Multiaxial scans obtained from the base skull to the vertex and were performed without IV contrast. 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 The basilar cisterns are prominent. There is a large hypodense area left middle cerebral artery distribution consistent with old ischemic infarct. This is basically stable and unchanged from previous MRI scan of brain 04/22/2013. There is diffuse ventricular megaly with mild ex vacuo effect of the left lateral ventricle. There is no bleed and there is no definite new ischemic infarct. The sylvian fissures and cortical sulci are prominent. There are no extra-axial fluid collections. There is minimal focal scalp swelling right frontal region. The bony calvarium appears intact. IMPRESSION: Stable old left MCA ischemic infarct lung findings of moderate cortical atrophy, no acute intracranial pathology noted I agree with the [facility] report.
--- NOTE | 2017-08-24 03:18 | CT_ITS ---
CT chest wo con COMPARISON: None HISTORY: Bruising right side chest and abdomen after a fall TECHNIQUE: Multiaxial scans obtained from the thoracic inlet to the hemidiaphragms and were performed without IV contrast. Sagittal and coronal reformats were evaluated as well. FINDINGS: There is a poor inspiratory effort. There is elevation right hemidiaphragm which likely is chronic. There is no pneumothorax and there is no definite pulmonary contusion. There is minimal atelectasis at the left base. Cardiac size is normal, there is mild aortic tortuosity. There is no obvious rib fracture. There is a hypodense and likely cystic lesion involving the inferior aspect of the left lobe of the thyroid gland measuring 2.1 x 2.8 cm. Follow-up ultrasound of the thyroid may be of benefit for better evaluation. IMPRESSION: Findings as described, no evidence of traumatic injury to the chest, agree the [facility] report.
--- NOTE | 2017-08-24 03:18 | CT_ITS ---
CT abdomen pelvis wo con COMPARISON: None HISTORY: Bruising and pain right side of abdomen after a fall TECHNIQUE: Multiaxial scans obtained from hemidiaphragms to the pelvic floor and were performed without IV or oral contrast. Sagittal and coronal reformats were evaluated as well. FINDINGS: There is elevation right hemidiaphragm. 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 There is a small hypodense lesion superior aspect of the right lobe of the liver measuring 2.1 cm in diameter likely a hepatic cyst. There are 2 additional small hypodense lesions inferior aspect right lobe of the liver likely hepatic cysts. The stomach spleen and pancreas appear grossly normal. The gallbladder is normal size containing several tiny partially calcified gallstones. The adrenal glands are normal. The kidneys are normal in size and there are no calculi and is no obstructive uropathy. Small bowel appears normal. I do not definitely identify the appendix but there are no pericecal inflammatory changes. There is large amount stool in the cecum and ascending colon which is moderately dilated. There is gaseous dilatation of the transverse colon. The urinary bladder and prostate appear normal. There is no free fluid in abdomen or pelvis. There is a compression fracture L1 with approximately 40-50% loss of height but this likely is old but suggest correlation for focal back pain at this level. IMPRESSION: Findings as described, no definite acute intra-abdominal or pelvic pathology identified, I agree the [facility] report. Evidence of cholelithiasis as noted
[2017-08-24 03:25] LABS: Basophils % 0.4 % (0.1-2.0); Eosinophils # 0.2 K/mm3 (0.0-0.4); Eosinophils % 1.7 % (0.1-12.0); Hematocrit 48.5 % (42.0-52.0); Hemoglobin 16.2 g/dL (14.1-18.0); Lymphocytes # 1.1 K/mm3 (0.7-4.5); Lymphocytes % 11.6 K/mm3 (10-50); Mean Corpuscular HGB Conc 33.3 g/dL (31.8-35.4); Mean Corpuscular Hemoglobin 28.2 pg (27.0-31.2); Mean Corpuscular Volume 84.7 fl (80-94); Monocytes % 10.4 % (1.7-9.3); Neutrophils # 6.9 K/mm3 (1.8-7.8); Neutrophils % 75.9 % (37.0-80.0); Platelet Count 288 K/mm3 (142-424); Red Blood Count 5.73 M/mm3 (4.60-6.20); Red Cell Distribution Width 13.9 % (11.5-17.5); White Blood Count 9.1 K/mm3 (4.8-10.8)
--- NOTE | 2017-08-24 03:27 | PC.NURSE ---
sister reports pt reported to her he had fallen, unsure of time, complaints of pain started Sunday, right rib pain with associated shortness of breath
[2017-08-24 03:31] LABS: Anion Gap 10.1 mEq/L (5-15); Blood Urea Nitrogen 9 mg/dL (7-18); Carbon Dioxide 31 mmol/L (21.0-32.0); Chloride 94 mmol/L (98-107); Creatinine Clearance Estimated 120 mL/min (0-300); Creatinine,Serum 0.87 mg/dL (0.70-1.30); Estimated Glomerular Filt Rate 92 ml/min (>60); GFR (African American) 111 ML/MIN (>60); Glucose 104 mg/dL (74-106); Potassium 4.1 mmoL/L (3.5-5.1); Sodium 131 mmol/L (136-145)
[2017-08-24 03:35] LABS: INR 3.07 (0.9-1.1); Prothrombin Time 33.5 seconds (9.4-11.8)
[2017-08-24 03:40] LABS: Activated Partial Thrombo Time 49.6 seconds (23.6-34.0)
--- NOTE | 2017-08-24 03:50 | PC.NURSE ---
pt returned from rad.
[2017-08-24 04:06] LABS: Erythrocyte Sedimentation Rate 22 mm/hr (0-20)
[2017-08-24 04:09] LABS: Amylase 64 U/L (25-125); Lipase 148 u/L (73-393)
[2017-08-24 04:26] LABS: CKMB Relative Index 0.5 U/L (0-4.0); Creatine Kinase 144 U/L (39-308); Creatine Kinase MB 0.7 mg/ml (0.0-3.6); Troponin I < 0.02 ng/ml (0.00-0.06)
[2017-08-24 04:30] LABS: Lactic Acid 0.8 mmol/L (0.4-2.0)
--- NOTE | 2017-08-24 04:39 | HMH.EDAMS ---
ED Disposition Clinical Impression: Closed compression fracture of L1 lumbar vertebral body Dilantin toxicity Qualifiers: Encounter type: initial encounter Injury intent: accidental or unintentional Qualified Code(s): T42.0X1A - Poisoning by hydantoin derivatives, accidental (unintentional), initial encounter Change in mental status Qualifiers: Altered mental status type: unspecified Qualified Code(s): R41.82 - Altered mental status, unspecified Disposition: Admitted As Inpatient Condition on Discharge: Fair Time of Disposition: 05:30 - Critical Care Critical Care Time: No Attestation: On 08/24/17, the high probability of a clinically significant, sudden or life threatening deterioration of the following system(s) required my full and direct attention, intervention and personal management. The time I documented below is in addition to time spent performing reported procedures but includes the following listed in this critical care notation. Total Critical Care Time: 65 Vital system(s) involved:: Metabolic Failure My critical care processes included: Assessment & monitoring of V/S, Initial and Re-exams, Data Review/Interpretation, Coordinating Care, Medication Orders and management, Documentation Medical Decision Making - Medical Records Medical records reviewed: Yes: I reviewed the patient's medical records. Vital Signs: 08/24/17 03:00 Temperature 98.4 F Temperature Source Oral Pulse Rate [Left Radial] 94 H Respiratory Rate 12 Blood Pressure [Right Arm] 139/89 Blood Pressure Mean [Right Arm] 105 Blood Pressure Source [Right Arm] Automatic Cuff Blood Pressure Position [Right Arm] Supine 02 Sat by Pulse Oximetry 96 Oxygen Delivery Method Room Air - Lab Data Lab results reviewed: Yes: I reviewed the patient's lab results. Lab Results 08/24/17 03:00: WBC 9.1, RBC 5.73, Hgb 16.2, Hct 48.5, MCV 84.7, MCH 28.2, MCHC 33.3, RDW 13.9, Plt Count 288, MPV 7.0 L, Neut % (Auto) 75.9, Lymph % (Auto) 11.6, [place] % (Auto) 10.4 H, Eos % (Auto) 1.7, Baso % (Auto) 0.4, Neut # (Auto) 6.9, Lymph # (Auto) 1.1, [place] # (Auto) 1.0, Eos # (Auto) 0.2, Baso # (Auto) 0.0 08/24/17 03:00: PT 33.5 H, INR 3.07 H, APTT 49.6 H 08/24/17 03:00: Sodium 131 L, Potassium 4.1, Chloride 94 L, Carbon Dioxide 31, Anion Gap 10.1, BUN 9, Creatinine 0.87, Estimated Creat Clear 120, Estimated GFR 92, Est GFR ( Amer) 111, Glucose 104 08/24/17 03:00: ESR 22 H 08/24/17 03:00: Urine Color Yellow, Urine Appearance Clear, Urine pH 7.0, Ur Specific [place] 1.010, Urine Protein Negative, Urine Glucose (UA) Negative, Urine Ketones Negative, Urine Blood Negative, Urine Nitrate Negative, Urine Bilirubin Negative, Urine Urobilinogen 0.2, Ur Leukocyte Esterase Negative, Urine WBC 3-5, Urine Bacteria Trace 08/24/17 03:00: Amylase 64, Lipase 148 08/24/17 03:00: Total Creatine Kinase 144, CK-MB (CK-2) 0.7 D, CK-MB (CK-2) Rel Index 0.5, Troponin I < 0.02 08/24/17 03:00: Phenytoin 45.4 H* 08/24/17 04:05: Lactic Acid 0.8 Result diagrams: 08/24/17 03:00 08/24/17 03:00 Orders (Tests/Meds): ED MEDICATIONS Generic Name Dose Route Start Last Admin Trade Name Freq PRN Reason Stop Dose Admin Sodium Chloride 1,000 mls @ 999 mls/hr 08/24/17 04:45 08/24/17 04:39 Sod Chlor 0.9% 1000ml Bag IV 08/24/17 05:45 999 mls/hr .Q1H1M BRIAN Administration Sodium Chloride 1,000 mls @ 999 mls/hr 08/24/17 05:45 Sod Chlor 0.9% 1000ml Bag IV 08/24/17 06:45 .Q1H1M BRIAN Discontinued Medications Generic Name Dose Route Start Last Admin Trade Name Freq PRN Reason Stop Dose Admin Sodium Chloride 500 mls @ 999 mls/hr 08/24/17 03:45 08/24/17 03:51 Sod Chlor 0.9% 1000ml Bag IV 08/24/17 04:15 999 mls/hr .Q31M BRIAN Administration ORDERS Category Date Time Status CT abdomen pelvis wo con Stat Cat Scan 08/24/17 03:[address] chest wo con Stat Cat Scan 08/24/17 03:[address] head/brain wo con Stat Cat Scan 08/24/17 03:16 Taken Lamotrig
[2017-08-24 04:48] LABS: Microscopic, Urine URINE MICROSCOPIC (MICROSCOPIC)
[2017-08-24 04:52] LABS: Appearance,Urine CLEAR (Clear); Bilirubin,Urine Negative (Negative); Blood, Urine Negative (Negative); Color,Urine YELLOW (Yellow); Glucose,Urine (UA) Negative (Negative); Ketones,Urine Negative (Negative); Leukocyte Esterase,Urine Negative (Negative); Nitrate,Urine Negative (Negative); Protein,Urine Negative (Negative); Urobilinogen,Urine 0.2 EU/dl (0.2)
--- NOTE | 2017-08-24 04:53 | ED_ITS ---
ED Disposition Clinical Impression: Closed compression fracture of L1 lumbar vertebral body Dilantin toxicity Qualifiers: Encounter type: initial encounter Injury intent: accidental or unintentional Qualified Code(s): T42.0X1A - Poisoning by hydantoin derivatives, accidental ( unintentional), initial encounter Change in mental status Qualifiers: Altered mental status type: unspecified Qualified Code(s): R41.82 - Altered mental status, unspecified Disposition: Admitted As Inpatient Condition on Discharge: Fair Time of Disposition: 05:30 - Critical Care Critical Care Time: No Attestation: On 08/24/17, the high probability of a clinically significant, sudden or life threatening deterioration of the following system(s) required my full and direct attention, intervention and personal management. The time I documented below is in addition to time spent performing reported procedures but includes the following listed in this critical care notation. Total Critical Care Time: 65 Vital system(s) involved:: Metabolic Failure My critical care processes included: Assessment & monitoring of V/S, Initial and Re-exams, Data Review/Interpretation, Coordinating Care, Medication Orders and management, Documentation Medical Decision Making - Medical Records Medical records reviewed: Yes: I reviewed the patient's medical records. Vital Signs: 08/24/17 03:00 Temperature 98.4 F Temperature Source Oral Pulse Rate [Left Radial] 94 H Respiratory Rate 12 Blood Pressure [Right Arm] 139/89 Blood Pressure Mean [Right Arm] 105 Blood Pressure Source [Right Arm] Automatic Cuff Blood Pressure Position [Right Arm] Supine 02 Sat by Pulse Oximetry 96 Oxygen Delivery Method Room Air - Lab Data Lab results reviewed: Yes: I reviewed the patient's lab results. Lab Results 08/24/17 03:00: WBC 9.1, RBC 5.73, Hgb 16.2, Hct 48.5, MCV 84.7, MCH 28.2, MCHC 33.3, RDW 13.9, Plt Count 288, MPV 7.0 L, Neut % (Auto) 75.9, Lymph % (Auto) 11.6, [place] % (Auto) 10.4 H, Eos % (Auto) 1.7, Baso % (Auto) 0.4, Neut # (Auto) 6.9, Lymph # (Auto) 1.1, [place] # (Auto) 1.0, Eos # (Auto) 0.2, Baso # (Auto) 0.0 08/24/17 03:00: PT 33.5 H, INR 3.07 H, APTT 49.6 H 08/24/17 03:00: Sodium 131 L, Potassium 4.1, Chloride 94 L, Carbon Dioxide 31, Anion Gap 10.1, BUN 9, Creatinine 0.87, Estimated Creat Clear 120, Estimated GFR 92, Est GFR ( Amer) 111, Glucose 104 08/24/17 03:00: ESR 22 H 08/24/17 03:00: Urine Color Yellow, Urine Appearance Clear, Urine pH 7.0, Ur Specific [place] 1.010, Urine Protein Negative, Urine Glucose (UA) Negative, Urine Ketones Negative, Urine Blood Negative, Urine Nitrate Negative, Urine Bilirubin Negative, Urine Urobilinogen 0.2, Ur Leukocyte Esterase Negative, Urine WBC 3-5, Urine Bacteria Trace 08/24/17 03:00: Amylase 64, Lipase 148 08/24/17 03:00: Total Creatine Kinase 144, CK-MB (CK-2) 0.7 D, CK-MB (CK-2) Rel Index 0.5, Troponin I < 0.02 08/24/17 03:00: Phenytoin 45.4 H* 08/24/17 04:05: Lactic Acid 0.8 Result diagrams: 08/24/17 03:00 08/24/17 03:00 Orders (Tests/Meds): ED MEDICATIONS Generic Name Dose Route Start Last Admin Trade Name Homerq PRN Reason Stop Dose Admin Sodium Chloride 1,000 mls @ 999 mls/hr 08/24/17 04:45 08/24/17 04:39 Sod Chlor 0.9% 1000ml Bag IV 08/24/17 05:45 999 mls/hr .Q1H1M BRIAN Administration Sodium Chloride 1,000 mls @ 999 mls/hr 08/24/17 05:45 Sod Chlor 0.9% 1000ml Bag IV 08/24/17 06:45
[2017-08-24 05:06] LABS: Phenytoin (Dilantin) 45.4 ug/mL (10-20)
[2017-08-24 05:26] LABS: Bacteria,Urine Trace /lpf
[2017-08-24 05:53] VITALS: BP 128/90; PULSE 97; RESP 16; TEMP 37; O2SAT 95
[2017-08-24 06:45] VITALS: BP 123/79; PULSE 99; RESP 20; TEMP 36.7; O2SAT 97
[2017-08-24 07:22] LABS: ABG Base Excess 1.9 mmol/L (-2.4-2.3); ABG HCO3 25.7 mmhg (22.0-26.0); ABG Oxygen Saturation 94 % (90-100); ABG PCO2 36.5 mmhg (35.0-45.0); ABG PH 7.47 mmol/L (7.35-7.45); ABG PO2 67.5 mmhg (80-100); ABG TCO2 26.8 mmhg (23-27); Allen's Test ACCEPTABLE; Oxygen ROOM AIR %; Source R RADIAL
[2017-08-24 07:32] VITALS: BP 127/74; PULSE 101; RESP 18; TEMP 36.6; O2SAT 94
--- NOTE | 2017-08-24 08:44 | SW/DCPLANNER ---
I have spoke with Deshawn Gonzalez from [facility] this morning in regards to this patient. Deshawn has stated that they will accept this patient back once ready for discharge. I have also spoke with patient and patients family and they would like to return to [facility] once ready for discharge.
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
--- NOTE | 2017-08-24 09:55 | XR_ITS ---
XR humerus RT COMPARISON: PA and lateral chest 07/11/2017 HISTORY: Right arm pain after a fall TECHNIQUE: AP lateral and oblique views FINDINGS: Humeral head and humeral shaft appear intact. 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 The soft tissues are normal. IMPRESSION: Negative for acute fracture
[2017-08-24 10:40] LABS: INR 3.59 (0.9-1.1); Prothrombin Time 39.3 seconds (9.4-11.8)
--- NOTE | 2017-08-24 11:47 | HMH.PTEV ---
Physical Therapy Evaluation Rehab PT IP Evaluation Start: 08/24/17 09:58 Freq: ONCE Status: Active Protocol: Document 08/24/17 11:43 PHORBONNIE (Rec: 08/24/17 11:47 PHORNE [id number]) Subjective/History History History [address] [facility] s/p fall at ns home. PMH of TBI Subjective Subjective Pt with no c/o this am. Rehab PT IP Eval Objective Appearance Patient Behavior Appropriate Patient Orientation Person Difficulty following instructions none Speech Pattern Clear Baseline Function Ambulation Patient Able to Ambulate Yes Ambulation Observation IP General Gait Pattern Observation Wide Based Gait Ambulation Distance (feet) 20 Ambulation Assistive Device Rolling Walker Balance Ability to Arise Able, w/o using arms Sitting Balance Steady, safe Standing Balance Steady, wide stance Dynamic Sitting Balance Ability Good Dynamic Standing Balance Ability Fair Transfers Bed Transfer Ability Supervision/Stand by Chair Transfer Ability Supervision/Stand by Sit to Stand Bed Transfer Ability Supervision/Stand by Sit to Stand Chair Transfer Ability Supervision/Stand by ROM All Extremities PT ROM Status WFL MMT All Extremities PT MMT WFL Rehab PT IP prob,goals,plan Problems Date of Evaluation: 08/24/17 Rehab Potential Rehab Potential Good Discharge Plan PT Discharge Plan Pt is appropriate to return to [facility] once medically stable. G -code Required Yes Eval Complexity Eval Charge Codes 60737 - Moderate Complexity G Codes PT Current Status Mobility PT Current Status Modifier CI-At least 1% but less than 20% impaired, limited or restricted PT Goal Status Mobility PT Goal Status Modifer CI-At least 1% but less than 20% impaired, limited or restricted PHYSICIAN CERTIFICATION: I certify the specified therapy services for Nabil Batista are required, authorized, and reviewed every 30 days.
--- NOTE | 2017-08-24 11:59 | P.CONPHA_ITS ---
[facility] Pharmacy VTE Monitoring - Patient Demographics Admission date: 08/24/17 Report Date: 08/24/17 Time: 11:59 Allergies/Adverse Reactions: Patient Allergies No Known Allergies Allergy (Verified 07/10/17 10:49) Height: 1.78 m Weight: 86.183 kg Patient Problems: Current Active Problems Dilantin toxicity (Acute) Closed compression fracture of L1 lumbar vertebral body (Acute) Change in mental status (Acute) - VTE Risk Labs: VTE Related Lab Results Hgb 16.2 g/dL (14.1-18.0) 08/24/17 03:00 Hct 48.5 % (42.0-52.0) 08/24/17 03:00 Plt Count 288 K/mm3 (142-424) 08/24/17 03:00 PT 39.3 seconds (9.4-11.8) H 08/24/17 10:21 INR 3.59 (0.9-1.1) H 08/24/17 10:21 APTT 49.6 seconds (23.6-34.0) H 08/24/17 03:00 BUN 9 mg/dL (7-18) 08/24/17 03:00 Creatinine 0.87 mg/dL (0.70-1.30) 08/24/17 03:00 Estimated Creat Clear 120 mL/min (0-300) 08/24/17 03:00 Was VTE Risk Assessment Performed: Yes VTE Risk Level: Moderate Risk - Prophylaxis VTE Prophylaxis Ordered?: Yes Types of VTE Prophylaxis: Not Applicable Location of Applied Device: Not Applicable Pharmacologic Type: Warfarin (INR=3.07)
[2017-08-24 15:49] VITALS: BP 127/76; PULSE 94; RESP 16; TEMP 36.5; O2SAT 96
--- NOTE | 2017-08-24 17:33 | PC.NURSE ---
Pt has tolerated well this shift, VS stable, no complaints voiced to nurse. Pt's family has been at bedside for alot of this shift. No changes since earlier assessment. Pt is in bed, seizure pads in place, call light within reach, will continue to monitor.
[2017-08-24 19:38] VITALS: BP 117/76; PULSE 101; RESP 14; TEMP 37.6; O2SAT 94
[2017-08-24 21:19] LABS: Phenytoin (Dilantin) 29.8 ug/mL (10-20)
[2017-08-25 04:00] VITALS: BP 132/86; PULSE 95; RESP 16; TEMP 36.7; O2SAT 100
--- NOTE | 2017-08-25 04:34 | PC.NURSE ---
PT HAS SLEPT. WORE HOME CPAP AT HS. NO COMPLAINTS. NO SEIZURE ACTIVITY NOTED. HORTON TO BSD WITH ADEQUATE OUTPUT.
[2017-08-25 06:35] LABS: Basophils % 0.6 % (0.1-2.0); Eosinophils # 0.2 K/mm3 (0.0-0.4); Eosinophils % 2.2 % (0.1-12.0); Hematocrit 43.7 % (42.0-52.0); Hemoglobin 14.9 g/dL (14.1-18.0); Lymphocytes # 1.1 K/mm3 (0.7-4.5); Lymphocytes % 14.4 K/mm3 (10-50); Mean Corpuscular HGB Conc 34.2 g/dL (31.8-35.4); Mean Corpuscular Hemoglobin 28.9 pg (27.0-31.2); Mean Corpuscular Volume 84.7 fl (80-94); Mean Platelet Volume 7.1 fl (7.4-10.4); Monocytes # 0.7 K/mm3 (0.1-1.0); Monocytes % 9.3 % (1.7-9.3); Neutrophils # 5.7 K/mm3 (1.8-7.8); Neutrophils % 73.6 % (37.0-80.0); Platelet Count 264 K/mm3 (142-424); Red Blood Count 5.16 M/mm3 (4.60-6.20); Red Cell Distribution Width 13.9 % (11.5-17.5); White Blood Count 7.7 K/mm3 (4.8-10.8)
[2017-08-25 06:45] LABS: INR 2.76 (0.9-1.1); Prothrombin Time 30.1 seconds (9.4-11.8)
[2017-08-25 06:59] LABS: Alanine Aminotransferase 27 U/L (12-78); Albumin Level 3.1 gm/dL (3.4-5.0); Albumin/Globulin Ratio 0.8 (1.1-1.8); Alkaline Phosphatase 182 U/L (46-116); Anion Gap 9.7 mEq/L (5-15); Aspartate Amino Transferase 13 U/L (15-37); Bilirubin,Total 0.4 mg/dL (0.2-1.0); Blood Urea Nitrogen 8 mg/dL (7-18); Calcium 8.2 mg/dL (8.5-10.1); Carbon Dioxide 28 mmol/L (21.0-32.0); Chloride 100 mmol/L (98-107); Creatinine Clearance Estimated 158 mL/min (0-300); Creatinine,Serum 0.66 mg/dL (0.70-1.30); Estimated Glomerular Filt Rate 126 ml/min (>60); GFR (African American) 153 ML/MIN (>60); Globulin 3.7 gm/dl (1.3-3.2); Glucose 91 mg/dL (74-106); Potassium 3.7 mmoL/L (3.5-5.1); Sodium 134 mmol/L (136-145); Total Protein,Serum 6.8 gm/dL (6.4-8.2)
[2017-08-25 07:35] VITALS: BP 127/88; PULSE 87; RESP 20; TEMP 36.7; O2SAT 96
--- NOTE | 2017-08-25 08:18 | XR_ITS ---
XR chest 2V Ordering Physician: Josh Hernandez MD Patient Age: 51 years: Male HISTORY: ITS.REASON: sob Dyspnea short of breath. Back pain TECHNIQUE: PA and lateral chest COMPARISON :CT chest from yesterday FINDINGS Low lung volume. Poor inspiration diaphragm only down to the anterior second-third rib on right. Elevation right hemidiaphragm. Generous Bibasilar atelectasis with most evident at the right base with associated a generous elevation right hemidiaphragm. Difficult to exclude an associated pneumonia region of prominent atelectasis right base overlying right hemidiaphragm posteriorly. Focal density at the anterior left third interspace most likely related to the linear atelectasis and scarring seen here on yesterday's CT chest. Coronal image [address] . Actually similar density was also seen on June 2017 chest film. There has been prominent volume loss compared to the June study . Appears be a small right & left pleural effusion with blunting at the posterior sulcus. . The heart appears normal in size. Pulmonary vascularity appears normal. Superior mediastinum unremarkable. IMPRESSION: ====== 1. Low lung volumes. Very Poor inspiration effort particularly compared to the June 2017 exam.. With Additional Elevation right hemidiaphragm since that time. 2. Bibasilar atelectasis most pronounced right. Prominent atelectatic changes posterior right lung base/RLL overlying the hemidiaphragm. Difficult to exclude developing infiltrate here but favor mainly volume loss & atelectasis.. Less pronounced atelectasis at the posterior left lung base. 3. Blunting posterior sulcus bilateral suggesting Small bilateral pleural effusions .
--- NOTE | 2017-08-25 08:18 | CT_ITS ---
CT lumbar spine wo con Ordering Physician: Josh Hernandez MD Patient Age: 51 years: Male HISTORY: ITS.REASON: back pain TECHNIQUE: Helical CT scanning performed the lumbar spine with sagittal coronal reconstructions on CT workstation. COMPARISON :Previous CT abdomen from yesterday 08/24/2017 Also a limited 2 view chest from June 2017 FINDINGS Wedge compression fracture L1 again noted. Age indeterminate .40- 50% loss of height at at its anterior aspect and slightly greater loss of height at its concave superior endplate centrally Slightly denser L1 vertebra than adjacent vertebra could reflect recent healing compression fracture, but I do not see any definitive acute fracture or findings to no cortical step-off. No paraspinal hematoma.. The buttress anterior marginal osteophyte at T12/L1 is smooth as it extends down to L1 and overall I believe the appearance here since 2 favor older compression fracture... If desire further evaluation MRI L-spine can better discern recent/acute versus older compression fractures. . The remaining vertebral bodies appear intact with diffuse de mineralization . The disc spaces are actually fairly well-maintained throughout the lumbar spine. Disc spaces. T12/L1 disc space narrowing posteriorly at this T11/12. However we see no disc protrusion or cystic remarkable spurring. There is some mild posterior element hypertrophy both facet and ligament flavum hypertrophy at both these levels. Which slightly indents the posterior aspect of thecal sac at L1/L2. L2/L3 disc intact with scant foraminal bulge negligible. Mild facet hypertrophy L3/4. Facet hypertrophy mild ligament flavum hypertrophy hypertrophy features slightly indents the posterior thecal sac and neural foramen L4/5 disc intact with moderate/generous facet hypertrophy. Slight narrowing the neural foramen bilaterally at due to the short pedicles and of the facet hypertrophy. L5/S1. Mild disc bulge posteriorly with generous facet hypertrophy.-The Latter feature moderate bilateral foraminal narrowing and encroachment. . Large amount of stool is seen at the rectum and portions of the visualized colon suggesting constipation. The partially imaged kidneys show no hydronephrosis no urinary tract calculi or obstruction. Mello catheter in place. == IMPRESSION: 1. No discrete acute findings. Diffuse demineralization. 2.. Mild Degenerative disc changes. Moderate/generous hypertrophic degenerative facet changes at several levels: . Particularly note generous facet hypertrophy L5/S1 L4 &/5 which further narrow & encroach upon the underlying modest AP dimension of neural foramen at these levels,. 3. Disc space narrowing T12/L1; and less evident at levels above and below The facet hypertrophy at T12/L1 level mildly encroach upon neural foramen & indenting posterior thecal sac at this level as well. 3.... ~50% wedge compression fracture L1.. Age-indeterminate. Tend to favor old featur.
--- NOTE | 2017-08-25 08:19 | HMH.ACPN2 ---
Internal Medicine - PN: Subj *Date: 08/25/17 *Time: 08:19 Interval history: doing better Exam Vital signs and Labs for Last 24 Hours: Temp Pulse Resp BP Pulse Ox 98.1 F 87 20 127/88 96 08/25/17 07:35 08/25/17 07:35 08/25/17 07:35 08/25/17 07:35 08/25/17 07:35 Laboratory Results - last 24 hr 08/24/17 10:21: PT 39.3 H, INR 3.59 H 08/24/17 21:00: Phenytoin 29.8 H* 08/25/17 06:15: WBC 7.7, RBC 5.16, Hgb 14.9, Hct 43.7, MCV 84.7, MCH 28.9, MCHC 34.2, RDW 13.9, Plt Count 264, MPV 7.1 L, Neut % (Auto) 73.6, Lymph % (Auto) 14.4, [place] % (Auto) 9.3, Eos % (Auto) 2.2, Baso % (Auto) 0.6, Neut # (Auto) 5.7, Lymph # (Auto) 1.1, [place] # (Auto) 0.7, Eos # (Auto) 0.2, Baso # (Auto) 0.0 08/25/17 06:15: Sodium 134 L, Potassium 3.7, Chloride 100, Carbon Dioxide 28, Anion Gap 9.7, BUN 8, Creatinine 0.66 L D, Estimated Creat Clear 158, Estimated GFR 126, Est GFR ( Amer) 153 D, Glucose 91, Calcium 8.2 L, Total Bilirubin 0.4, AST 13 L, ALT 27, Alkaline Phosphatase 182 H, Total Protein 6.8, Albumin 3.1 L, Globulin 3.7 H, Albumin/Globulin Ratio 0.8 L 08/25/17 06:15: PT 30.1 H, INR 2.76 H I & O for Last 24 hours: Intake & Output 08/22/17 08/23/17 08/24/17 08/25/17 11:59 11:59 11:59 11:59 Intake Total 360 / 360 3348 / 3348 Output Total 1900 / 1900 2300 / 2300 Balance -1540 / -1540 1048 / 1048 Weight 190 lb - Constitutional no acute distress - *Routine HEENT Exam Head: Present: normocephalic Eye: Present: EOMI, PERRL ENT: Present: mucous membranes dry - *Routine Neck Exam Absent: JVD - *Routine Respiratory Exam Present: CTA bilaterally - *Routine Cardiovascular Exam Present: Normal S1, murmur, S4 - *Routine Abdominal Exam Present: soft - *Routine Extremities Exam Absent: calf tenderness - Routine Back/Spine/Pelvis Exam Back/Spine: Present: vertebral tenderness, abnormal straight leg raise - *Routine Skin Exam Present: intact - *Routine Neurological Exam Present: alert, oriented X3, CN II-XII intact - Routine Psychiatric Exam Present: normal affect Assessment and Plan (1) Change in mental status Current visit: Yes Status: Acute Qualifiers: Altered mental status type: unspecified Qualified Code(s): R41.82 - Altered mental status, unspecified Category: Medical Code(s): R41.82 - Altered mental status, unspecified (2) Closed compression fracture of L1 lumbar vertebral body Current visit: Yes Status: Acute Category: Medical Code(s): M48.56XA - Collapsed vertebra, not elsewhere classified, lumbar region, initial encounter for fracture (3) Dilantin toxicity Current visit: Yes Status: Acute Qualifiers: Encounter type: initial encounter Injury intent: accidental or unintentional Qualified Code(s): T42.0X1A - Poisoning by hydantoin derivatives, accidental (unintentional), initial encounter Category: Medical Code(s): T42.0X1A - Poisoning by hydantoin derivatives, accidental (unintentional), initial encounter (4) Falls Current visit: No Status: Acute Qualifiers: Encounter type: initial encounter Qualified Code(s): W19.XXXA - Unspecified fall, initial encounter Category: Medical Code(s): W19.XXXA - Unspecified fall, initial encounter (5) Cholelithiasis Current visit: Yes Status: Acute Category: Medical Code(s): K80.20 - Calculus of gallbladder without cholecystitis without obstruction (6) Thyroid cyst Current visit: Yes Status: Acute Category: Medical Code(s): E04.1 - Nontoxic single thyroid nodule (7) Dilantin toxicity Current visit: Yes Status: Acute Category: Medical Code(s): T42.0X1A - Poisoning by hydantoin derivatives, accidental (unintentional), initial encounter
--- NOTE | 2017-08-25 08:22 | P.PN_ITS ---
Internal Medicine - PN: Subj *Date: 08/25/17 *Time: 08:19 Interval history: doing better Exam Vital signs and Labs for Last 24 Hours: Temp Pulse Resp BP Pulse Ox 98.1 F 87 20 127/88 96 08/25/17 07:35 08/25/17 07:35 08/25/17 07:35 08/25/17 07:35 08/25/17 07:35 Laboratory Results - last 24 hr 08/24/17 10:21: PT 39.3 H, INR 3.59 H 08/24/17 21:00: Phenytoin 29.8 H* 08/25/17 06:15: WBC 7.7, RBC 5.16, Hgb 14.9, Hct 43.7, MCV 84.7, MCH 28.9, MCHC 34.2, RDW 13.9, Plt Count 264, MPV 7.1 L, Neut % (Auto) 73.6, Lymph % (Auto) 14.4, [place] % (Auto) 9.3, Eos % (Auto) 2.2, Baso % (Auto) 0.6, Neut # (Auto) 5.7 , Lymph # (Auto) 1.1, [place] # (Auto) 0.7, Eos # (Auto) 0.2, Baso # (Auto) 0.0 08/25/17 06:15: Sodium 134 L, Potassium 3.7, Chloride 100, Carbon Dioxide 28, Anion Gap 9.7, BUN 8, Creatinine 0.66 L D, Estimated Creat Clear 158, Estimated GFR 126, Est GFR ( Amer) 153 D, Glucose 91, Calcium 8.2 L, Total Bilirubin 0.4, AST 13 L, ALT 27, Alkaline Phosphatase 182 H, Total Protein 6.8, Albumin 3.1 L, Globulin 3.7 H, Albumin/Globulin Ratio 0.8 L 08/25/17 06:15: PT 30.1 H, INR 2.76 H I & O for Last 24 hours: Intake & Output 08/22/17 08/23/17 08/24/17 08/25/17 11:59 11:59 11:59 11:59 Intake Total 360 / 360 3348 / 3348 Output Total 1900 / 1900 2300 / 2300 Balance -1540 / -1540 1048 / 1048 Weight 190 lb - Constitutional no acute distress - *Routine HEENT Exam Head: Present: normocephalic Eye: Present: EOMI, PERRL ENT: Present: mucous membranes dry - *Routine Neck Exam Absent: JVD - *Routine Respiratory Exam Present: CTA bilaterally - *Routine Cardiovascular Exam Present: Normal S1, murmur, S4 - *Routine Abdominal Exam Present: soft - *Routine Extremities Exam Absent: calf tenderness - Routine Back/Spine/Pelvis Exam Back/Spine: Present: vertebral tenderness, abnormal straight leg raise - *Routine Skin Exam Present: intact - *Routine Neurological Exam Present: alert, oriented X3, CN II-XII intact - Routine Psychiatric Exam Present: normal affect Assessment and Plan (1) Change in mental status Current visit: Yes Status: Acute Qualifiers: Altered mental status type: unspecified Qualified Code(s): R41.82 - Altered mental status, unspecified Category: Medical Code(s): R41.82 - Altered mental status, unspecified (2) Closed compression fracture of L1 lumbar vertebral body Current visit: Yes Status: Acute Category: Medical Code(s): M48.56XA - Collapsed vertebra, not elsewhere classified, lumbar region, initial encounter for fracture (3) Dilantin toxicity Current visit: Yes Status: Acute Qualifiers: Encounter type: initial encounter Injury intent: accidental or unintentional Qualified Code(s): T42.0X1A - Poisoning by hydantoin derivatives , accidental (unintentional), initial encounter Category: Medical Code(s): T42.0X1A - Poisoning by hydantoin derivatives, accidental (unintentional), initial encounter (4) Falls Current visit: No Status: Acute Qualifiers: Encounter type: initial encounter Qualified Code(s): W19.XXXA - Unspecified fall, initial encounter Category: Medical Code(s): W19.XXXA - Unspecified fall, initial encounter (5) Cholelithiasis Current visit: Yes Status: Acute Category: Medical Code(s): K80.20 - Calculus of gallbladder without cholecystitis without obstruction (6) Th
[2017-08-25 08:47] LABS: Phenytoin (Dilantin) 31.6 ug/mL (10-20)
--- NOTE | 2017-08-25 15:10 | PC.NURSE ---
Pt resting in bed with no complaints at this time. CT and chest ray completed this shift. Mello remains in place with mary color urine noted. Call light in reach. Will continue to monitor
[2017-08-25 15:47] VITALS: BP 114/72; PULSE 90; RESP 20; TEMP 36.8; O2SAT 94
[2017-08-25 20:00] VITALS: BP 119/73; PULSE 105; RESP 18; TEMP 36.3; O2SAT 95
[2017-08-26 04:00] VITALS: BP 124/76; PULSE 100; RESP 20; TEMP 36.6; O2SAT 95
--- NOTE | 2017-08-26 04:31 | PC.NURSE ---
PT HAS SLEPT. CPAP WORN AT [facility] TO [facility] WITH ADEQUATE OUTPUT. NO SEIZURE ACTIVITY NOTED.
[2017-08-26 07:06] LABS: Basophils # 0.1 K/mm3 (0-0.2); Basophils % 0.3 % (0.1-2.0); Eosinophils # 0.1 K/mm3 (0.0-0.4); Eosinophils % 0.5 % (0.1-12.0); Hematocrit 40.9 % (42.0-52.0); Hemoglobin 13.6 g/dL (14.1-18.0); Lymphocytes # 1.1 K/mm3 (0.7-4.5); Lymphocytes % 6.9 K/mm3 (10-50); Mean Corpuscular HGB Conc 33.2 g/dL (31.8-35.4); Mean Corpuscular Hemoglobin 28.1 pg (27.0-31.2); Mean Corpuscular Volume 84.7 fl (80-94); Mean Platelet Volume 7.1 fl (7.4-10.4); Monocytes % 6.3 % (1.7-9.3); Neutrophils # 13.4 K/mm3 (1.8-7.8); Platelet Count 286 K/mm3 (142-424); Red Blood Count 4.83 M/mm3 (4.60-6.20); Red Cell Distribution Width 13.9 % (11.5-17.5); White Blood Count 15.6 K/mm3 (4.8-10.8)
[2017-08-26 07:12] LABS: MANUAL DIFFERENTIAL MANUAL DIFFERENTIAL (MANUAL DIFF)
[2017-08-26 07:19] LABS: Alanine Aminotransferase 26 U/L (12-78); Albumin Level 2.8 gm/dL (3.4-5.0); Albumin/Globulin Ratio 0.8 (1.1-1.8); Alkaline Phosphatase 167 U/L (46-116); Anion Gap 8.6 mEq/L (5-15); Aspartate Amino Transferase 14 U/L (15-37); Bilirubin,Total 0.4 mg/dL (0.2-1.0); Blood Urea Nitrogen 12 mg/dL (7-18); Carbon Dioxide 28 mmol/L (21.0-32.0); Chloride 98 mmol/L (98-107); Creatinine Clearance Estimated 134 mL/min (0-300); Creatinine,Serum 0.78 mg/dL (0.70-1.30); Estimated Glomerular Filt Rate 104 ml/min (>60); GFR (African American) 126 ML/MIN (>60); Globulin 3.5 gm/dl (1.3-3.2); Glucose 99 mg/dL (74-106); Potassium 3.6 mmoL/L (3.5-5.1); Sodium 131 mmol/L (136-145); Total Protein,Serum 6.3 gm/dL (6.4-8.2)
[2017-08-26 07:31] LABS: Lymphocytes % 8 % (10-50); Monocytes % 1 % (2-9); Neutrophils % 88 % (42-76); Platelet Estimate Normal; RBC Morphology Normal; Total Cells Counted 100
[2017-08-26 07:38] LABS: Phenytoin (Dilantin) 24.2 ug/mL (10-20)
[2017-08-26 07:39] VITALS: BP 108/67; PULSE 69; RESP 20; TEMP 36.9; O2SAT 94
--- NOTE | 2017-08-26 08:32 | HMH.ACPN2 ---
Internal Medicine - PN: Subj *Date: 08/26/17 *Time: 08:32 Interval history: pt doing ok and sister present- some cough -and elevated wbc and some hx of possible aspiration Exam Vital signs and Labs for Last 24 Hours: Temp Pulse Resp BP Pulse Ox 98.4 F 69 20 108/67 94 L 08/26/17 07:39 08/26/17 07:39 08/26/17 07:39 08/26/17 07:39 08/26/17 07:39 Laboratory Results - last 24 hr 08/25/17 08:27: Phenytoin 31.6 H* 08/26/17 06:05: WBC 15.6 H D, RBC 4.83, Hgb 13.6 L, Hct 40.9 L, MCV 84.7, MCH 28.1, MCHC 33.2, RDW 13.9, Plt Count 286, MPV 7.1 L, Neut % (Auto) 86.0 H, Lymph % (Auto) 6.9 L, [place] % (Auto) 6.3, Eos % (Auto) 0.5, Baso % (Auto) 0.3, Neut # (Auto) 13.4 H, Lymph # (Auto) 1.1, [place] # (Auto) 1.0, Eos # (Auto) 0.1, Baso # (Auto) 0.1, Total Counted 100, Neutrophils % (Manual) 88 H, Band Neutrophils % 3.0, Lymphocytes % (Manual) 8 L, Monocytes % (Manual) 1 L, Platelet Estimate Normal, RBC Morphology Normal 08/26/17 06:05: Sodium 131 L, Potassium 3.6, Chloride 98, Carbon Dioxide 28, Anion Gap 8.6, BUN 12 D, Creatinine 0.78, Estimated Creat Clear 134, Estimated GFR 104, Est GFR ( Amer) 126, Glucose 99, Calcium 8.0 L, Total Bilirubin 0.4, AST 14 L, ALT 26, Alkaline Phosphatase 167 H, Total Protein 6.3 L, Albumin 2.8 L, Globulin 3.5 H, Albumin/Globulin Ratio 0.8 L 08/26/17 06:05: Phenytoin 24.2 H* I & O for Last 24 hours: Intake & Output 08/23/17 08/24/17 08/25/17 08/26/17 11:59 11:59 11:59 12:59 Intake Total 360 / 360 3348 / 3348 2380 / 2380 Output Total 1900 / 1900 2300 / 2300 3100 / 3100 Balance -1540 / -1540 1048 / 1048 -720 / -720 Weight 190 lb - Constitutional no acute distress - *Routine HEENT Exam Head: Present: normocephalic Eye: Present: EOMI, PERRL ENT: Present: mucous membranes dry - *Routine Neck Exam Absent: JVD - *Routine Respiratory Exam Present: decreased breath sounds. Absent: respiratory distress - *Routine Cardiovascular Exam Present: RRR, murmur, S4 - *Routine Abdominal Exam Present: soft - *Routine Extremities Exam Present: edema. Absent: calf tenderness - *Routine Skin Exam Present: intact - *Routine Neurological Exam Present: alert, oriented X3, CN II-XII intact - Routine Psychiatric Exam Present: normal affect Assessment and Plan (1) Change in mental status Current visit: Yes Status: Acute Qualifiers: Altered mental status type: unspecified Qualified Code(s): R41.82 - Altered mental status, unspecified Category: Medical Code(s): R41.82 - Altered mental status, unspecified (2) Closed compression fracture of L1 lumbar vertebral body Current visit: Yes Status: Acute Category: Medical Code(s): M48.56XA - Collapsed vertebra, not elsewhere classified, lumbar region, initial encounter for fracture (3) Dilantin toxicity Current visit: Yes Status: Acute Qualifiers: Encounter type: initial encounter Injury intent: accidental or unintentional Qualified Code(s): T42.0X1A - Poisoning by hydantoin derivatives, accidental (unintentional), initial encounter Category: Medical Code(s): T42.0X1A - Poisoning by hydantoin derivatives, accidental (unintentional), initial encounter (4) Falls Current visit: No Status: Acute Qualifiers: Encounter type: initial encounter Qualified Code(s): W19.XXXA - Unspecified fall, initial encounter Category: Medical Code(s): W19.XXXA - Unspecified fall, initial encounter (5) Cholelithiasis Current visit: Yes Status: Acute Category: Medical Code(s): K80.20 - Calculus of gallbladder without cholecystitis without obstruction (6) Thyroid cyst Current visit: Yes Status: Acute Category: Medical Code(s): E04.1 - Nontoxic single thyroid nodule (7) Dilantin toxicity Current visit: Yes Status: Acute Category: Medical Code(s): T42.0X1A - Poisoning by hydantoin derivatives, accidental (unintentional), initial encounter
--- NOTE | 2017-08-26 14:15 | PC.NURSE ---
PT IS SITTING UP IN THE CHAIR WATCHING TV AT THIS TIME. PT WAS A STANDBY ASSIST GETTING OOB TO THE CHAIR. ALERT AND ORIENTED X3. EATING AND DRINKING WELL. LUNG SOUNDS CLEAR, BOWEL SOUNDS NORMAL. PT DID NOT HAVE ANY PROBLEMS WITH SWALLOWING HIS PILLS THIS SHIFT. VSS, WILL CONTINUE TO MONITOR.
[2017-08-26 15:30] VITALS: BP 112/65; PULSE 89; RESP 20; TEMP 36.6; O2SAT 94
[2017-08-26 20:00] VITALS: BP 118/74; PULSE 92; RESP 20; TEMP 37; O2SAT 95
--- NOTE | 2017-08-27 | FL_ITS ---
FL barium swallow modified Ordering Physician: Josh Hernandez MD Patient Age: 51 years: Male HISTORY: ITS.REASON: ASPIRATION PNEUMONIA . TECHNIQUE AND FINDINGS: Fluoroscopy time 2 minutes 47 seconds It study performed conjunction with speech pathologist Loli norris Patient was studied in the lateral projection with fluoroscopic observation. Multiple consistencies of barium utilized. Including thin barium by straw and cup, nectar consistency, barium pudding, barium mechanical soft. Barium on cookie. Barium pill . The patient shows no aspiration but there are repeated episodes of variable residue, residual within the vallecula this was more pronounced with solid foods then liquid but does clear with subsequent swallow efforts.. IMPRESSION: No aspiration observed but ] The swallowing mechanism is slightly impaired, in that there is a recurrent residual, residue seen at the vallecula which could give rise to potential aspiration. This eventually clears with repeat swallows.. This pharyngeal residual seemed to be more pronounced with the more solid character of food . Please see studies pathologist report
--- NOTE | 2017-08-27 02:18 | PC.NURSE ---
Patient laying in bed resting at this time, cpap in use. Denies any pain, no soa at this time. Has been independent in turning self. Has not been up this shift. Did assist with a bed bath. lungs are clear, resp even and non labored. Mello is patent with clear yellow urine secures to bedside. Encouraged patient to move frequently and deep breathing exercises to promote lung expansion. Patient took 2100 meds with water, tolerated well. No coughing noted.Was sitting up at 45 degree angle. IV is patent. Denies needs at this time. Bed locked in low position,seizure pads in place, call light within reach. Encouraged to notify staff of any needs.
[2017-08-27 04:00] VITALS: BP 132/75; PULSE 87; RESP 20; TEMP 36.7; O2SAT 95
[2017-08-27 06:47] LABS: Basophils # 0.1 K/mm3 (0-0.2); Basophils % 0.6 % (0.1-2.0); Eosinophils # 0.3 K/mm3 (0.0-0.4); Eosinophils % 2.8 % (0.1-12.0); Hematocrit 43.9 % (42.0-52.0); Hemoglobin 14.8 g/dL (14.1-18.0); Lymphocytes # 1.2 K/mm3 (0.7-4.5); Lymphocytes % 12.6 K/mm3 (10-50); Mean Corpuscular HGB Conc 33.8 g/dL (31.8-35.4); Mean Corpuscular Hemoglobin 28.7 pg (27.0-31.2); Mean Platelet Volume 7.1 fl (7.4-10.4); Monocytes # 0.9 K/mm3 (0.1-1.0); Monocytes % 8.8 % (1.7-9.3); Neutrophils # 7.3 K/mm3 (1.8-7.8); Neutrophils % 75.3 % (37.0-80.0); Platelet Count 311 K/mm3 (142-424); Red Blood Count 5.17 M/mm3 (4.60-6.20); White Blood Count 9.7 K/mm3 (4.8-10.8)
[2017-08-27 07:02] LABS: Alanine Aminotransferase 49 U/L (12-78); Albumin/Globulin Ratio 0.7 (1.1-1.8); Alkaline Phosphatase 187 U/L (46-116); Anion Gap 11.1 mEq/L (5-15); Aspartate Amino Transferase 31 U/L (15-37); Bilirubin,Total 0.2 mg/dL (0.2-1.0); Blood Urea Nitrogen 11 mg/dL (7-18); Calcium 8.5 mg/dL (8.5-10.1); Carbon Dioxide 28 mmol/L (21.0-32.0); Chloride 100 mmol/L (98-107); Creatinine Clearance Estimated 137 mL/min (0-300); Creatinine,Serum 0.76 mg/dL (0.70-1.30); Estimated Glomerular Filt Rate 107 ml/min (>60); GFR (African American) 130 ML/MIN (>60); Globulin 4.2 gm/dl (1.3-3.2); Glucose 97 mg/dL (74-106); Potassium 4.1 mmoL/L (3.5-5.1); Sodium 135 mmol/L (136-145); Total Protein,Serum 7.2 gm/dL (6.4-8.2)
--- NOTE | 2017-08-27 07:26 | PC.NURSE ---
Report received from Aster Keita RN
[2017-08-27 08:32] LABS: Phenytoin (Dilantin) 21.5 ug/mL (10-20)
[2017-08-27 08:35] VITALS: BP 124/79; PULSE 74; RESP 20; TEMP 36.7; O2SAT 93
--- NOTE | 2017-08-27 10:48 | PC.NURSE ---
CALL PLACED TO DR CROW'S OFFICE AND SPOKE WITH ALBAN, AGENT FOR DR CROW. PT HAD A SWALLOW EVALUATION IN JUNE 2017 AND PASSED. SPEECH THERAPIST REPORTED THAT PT MAY BE HAVING SILENT ASPIRATION AND RECOMMENDS A MODIFIED BARIUM SWALLOW. ALBAN WILL REVIEW WITH DR CROW. AWAITING RETURN CALL.
--- NOTE | 2017-08-27 13:21 | PC.NURSE ---
Call placed to Dr Hernandez's office and spoke with Kamala regarding follow up on swallow eval. Kamala verified that Dr Hernandez agrees with Modified Barium Swallow test. Order received and read back.
--- NOTE | 2017-08-27 14:13 | PC.NURSE ---
Interdisciplinary meeting completed with Nursing, Dietary, and care management in attendance. Discussed pt's care and discharge needs.
--- NOTE | 2017-08-27 14:44 | HMH.SLMBS2 ---
Speech & Language Evaluation Speech/Language Mod Barium Swallow Start: 08/27/17 14:32 Freq: once Status: Complete Protocol: Document 08/27/17 14:32 SAVANNA (Rec: 08/27/17 14:44 SAVANNA [id number]) [facility] [place] Diet Dietary Recommendations Mechanical Soft Chopped Meats Thin Liquids Treatment/Strategies Strategy/Precaution Recommend Sitting Upright (90 deg) Double Swallow Small Bites and Sips Alternate Liquids/Solids Mod Barium Swallow Impressions Summary and Impressions Oral Phase Impression No Impairment (WFL) Oral Phase Summary No oral phase impairments noted. Pharyngeal Phase Impression Mild Impairment Pharyngeal Phase Summary Mild pharyngeal residue in valleculae with all consistencies. Patient unable to follow verbal and visual directions to use compensatory strategy of chin tuck. Double swallow and alternate between bite and sip recommended. Speech/Language MBS Assessment/Goals/Plan Assessment Date of Evaluation: 08/27/17 Evaluation Type Initial Certification Assessment/Problems Possible silent aspiration Does Patient Qualify for Service No Qualify/Failure Comment Patient will be monitored throughout length of stay. Recommendations PHYSICIAN CERTIFICATION: The specified therapy services are required, authorized, and reviewed every 30 days. Diet Recommendations mechanical soft with chopped meats Liquid Type Recommendations Normal/Thin SL Swallow Guidelines Alt bite w/sip thru meal Crush Meds Small OK/Crush large pill Dysphagia Swallow Precautions/Strategies Sitting Upright (90 deg) Double Swallow Small Bites and Sips Alternate Liquids/Solids Plan Pt/Guardian verbally ack understanding Yes of dx/prognosis/goals G -code Required Yes G-CODES ST Current Status [id number] ST Current Status Modifier CI-At least 1% but less than 20% impaired, limited or restricted ST Goal Status [id number] ST Goal Status Modifier CI-At least 1% but less than 20% impaired, limited or restricted Mod Barium Swallow Setup Exam Setup Radiologist Vasyl Henderson Level of Consciousness
[2017-08-27 16:00] VITALS: BP 116/73; PULSE 90; RESP 16; TEMP 36.5; O2SAT 95
--- NOTE | 2017-08-27 18:01 | HMH.ACPN2 ---
Internal Medicine - PN: Subj *Date: 08/27/17 *Time: 18:01 Interval history: doing better and will do swallowing eval Exam Vital signs and Labs for Last 24 Hours: Temp Pulse Resp BP Pulse Ox 97.7 F 90 16 116/73 95 08/27/17 16:00 08/27/17 16:00 08/27/17 16:00 08/27/17 16:00 08/27/17 16:00 Laboratory Results - last 24 hr 08/27/17 06:05: WBC 9.7 D, RBC 5.17, Hgb 14.8, Hct 43.9, MCV 85.0, MCH 28.7, MCHC 33.8, RDW 14.0, Plt Count 311, MPV 7.1 L, Neut % (Auto) 75.3, Lymph % (Auto) 12.6, [place] % (Auto) 8.8, Eos % (Auto) 2.8, Baso % (Auto) 0.6, Neut # (Auto) 7.3, Lymph # (Auto) 1.2, [place] # (Auto) 0.9, Eos # (Auto) 0.3, Baso # (Auto) 0.1 08/27/17 06:05: Sodium 135 L, Potassium 4.1, Chloride 100, Carbon Dioxide 28, Anion Gap 11.1, BUN 11, Creatinine 0.76, Estimated Creat Clear 137, Estimated GFR 107, Est GFR ( Amer) 130, Glucose 97, Calcium 8.5, Total Bilirubin 0.2, AST 31 D, ALT 49 D, Alkaline Phosphatase 187 H, Total Protein 7.2, Albumin 3.0 L, Globulin 4.2 H, Albumin/Globulin Ratio 0.7 L 08/27/17 06:05: Phenytoin 21.5 H* I & O for Last 24 hours: Intake & Output 08/25/17 08/26/17 08/27/17 08/28/17 10:59 11:59 11:59 11:59 Intake Total 1080 / 1080 Output Total 3700 / 3700 1000 / 1000 Balance -2620 / -2620 -1000 / -1000 Weight - Constitutional no acute distress - *Routine HEENT Exam Head: Present: normocephalic Eye: Present: EOMI, PERRL ENT: Present: mucous membranes dry - *Routine Neck Exam Absent: JVD - *Routine Respiratory Exam Present: decreased breath sounds. Absent: respiratory distress - *Routine Cardiovascular Exam Present: RRR, murmur - *Routine Abdominal Exam Present: soft - *Routine Extremities Exam Absent: calf tenderness - *Routine Skin Exam Present: intact - *Routine Neurological Exam Present: alert - Routine Psychiatric Exam Present: normal affect Assessment and Plan (1) Change in mental status Current visit: Yes Status: Acute Qualifiers: Altered mental status type: unspecified Qualified Code(s): R41.82 - Altered mental status, unspecified Category: Medical Code(s): R41.82 - Altered mental status, unspecified (2) Closed compression fracture of L1 lumbar vertebral body Current visit: Yes Status: Acute Category: Medical Code(s): M48.56XA - Collapsed vertebra, not elsewhere classified, lumbar region, initial encounter for fracture (3) Dilantin toxicity Current visit: Yes Status: Acute Qualifiers: Encounter type: initial encounter Injury intent: accidental or unintentional Qualified Code(s): T42.0X1A - Poisoning by hydantoin derivatives, accidental (unintentional), initial encounter Category: Medical Code(s): T42.0X1A - Poisoning by hydantoin derivatives, accidental (unintentional), initial encounter (4) Falls Current visit: No Status: Acute Qualifiers: Encounter type: initial encounter Qualified Code(s): W19.XXXA - Unspecified fall, initial encounter Category: Medical Code(s): W19.XXXA - Unspecified fall, initial encounter (5) Cholelithiasis Current visit: Yes Status: Acute Category: Medical Code(s): K80.20 - Calculus of gallbladder without cholecystitis without obstruction (6) Thyroid cyst Current visit: Yes Status: Acute Category: Medical Code(s): E04.1 - Nontoxic single thyroid nodule (7) Dilantin toxicity Current visit: Yes Status: Acute Category: Medical Code(s): T42.0X1A - Poisoning by hydantoin derivatives, accidental (unintentional), initial encounter (8) Dysphagia Current visit: Yes Status: Acute Category: Medical Code(s): R13.10 - Dysphagia, unspecified
--- NOTE | 2017-08-27 18:03 | PC.NURSE ---
Pt resting in bed at time of this documentation in NAD. Denies any pain. VSS. Afebrile. Lungs CTA. Heart rate reg. Mello is patent with clear mary urine secured to bedside. (L) hand IV saline locked and patent. Modified barium swallow completed this shift. Recommendations received for pt to have mechanical soft with chopped meats and gravy. Pt is to be reminded to perform double swallow technique and supervised during meals. Bed locked in low position, seizure pads in place, call light within reach. Will continue to monitor.
--- NOTE | 2017-08-27 18:04 | P.PN_ITS ---
Internal Medicine - PN: Subj *Date: 08/27/17 *Time: 18:01 Interval history: doing better and will do swallowing eval Exam Vital signs and Labs for Last 24 Hours: Temp Pulse Resp BP Pulse Ox 97.7 F 90 16 116/73 95 08/27/17 16:00 08/27/17 16:00 08/27/17 16:00 08/27/17 16:00 08/27/17 16:00 Laboratory Results - last 24 hr 08/27/17 06:05: WBC 9.7 D, RBC 5.17, Hgb 14.8, Hct 43.9, MCV 85.0, MCH 28.7, MCHC 33.8, RDW 14.0, Plt Count 311, MPV 7.1 L, Neut % (Auto) 75.3, Lymph % (Auto ) 12.6, [place] % (Auto) 8.8, Eos % (Auto) 2.8, Baso % (Auto) 0.6, Neut # (Auto) 7.3, Lymph # (Auto) 1.2, [place] # (Auto) 0.9, Eos # (Auto) 0.3, Baso # (Auto) 0.1 08/27/17 06:05: Sodium 135 L, Potassium 4.1, Chloride 100, Carbon Dioxide 28, Anion Gap 11.1, BUN 11, Creatinine 0.76, Estimated Creat Clear 137, Estimated GFR 107, Est GFR ( Amer) 130, Glucose 97, Calcium 8.5, Total Bilirubin 0.2, AST 31 D, ALT 49 D, Alkaline Phosphatase 187 H, Total Protein 7.2, Albumin 3.0 L, Globulin 4.2 H, Albumin/Globulin Ratio 0.7 L 08/27/17 06:05: Phenytoin 21.5 H* I & O for Last 24 hours: Intake & Output 08/25/17 08/26/17 08/27/17 08/28/17 10:59 11:59 11:59 11:59 Intake Total 1080 / 1080 Output Total 3700 / 3700 1000 / 1000 Balance -2620 / -2620 -1000 / -1000 Weight - Constitutional no acute distress - *Routine HEENT Exam Head: Present: normocephalic Eye: Present: EOMI, PERRL ENT: Present: mucous membranes dry - *Routine Neck Exam Absent: JVD - *Routine Respiratory Exam Present: decreased breath sounds. Absent: respiratory distress - *Routine Cardiovascular Exam Present: RRR, murmur - *Routine Abdominal Exam Present: soft - *Routine Extremities Exam Absent: calf tenderness - *Routine Skin Exam Present: intact - *Routine Neurological Exam Present: alert - Routine Psychiatric Exam Present: normal affect Assessment and Plan (1) Change in mental status Current visit: Yes Status: Acute Qualifiers: Altered mental status type: unspecified Qualified Code(s): R41.82 - Altered mental status, unspecified Category: Medical Code(s): R41.82 - Altered mental status, unspecified (2) Closed compression fracture of L1 lumbar vertebral body Current visit: Yes Status: Acute Category: Medical Code(s): M48.56XA - Collapsed vertebra, not elsewhere classified, lumbar region, initial encounter for fracture (3) Dilantin toxicity Current visit: Yes Status: Acute Qualifiers: Encounter type: initial encounter Injury intent: accidental or unintentional Qualified Code(s): T42.0X1A - Poisoning by hydantoin derivatives , accidental (unintentional), initial encounter Category: Medical Code(s): T42.0X1A - Poisoning by hydantoin derivatives, accidental (unintentional), initial encounter (4) Falls Current visit: No Status: Acute Qualifiers: Encounter type: initial encounter Qualified Code(s): W19.XXXA - Unspecified fall, initial encounter Category: Medical Code(s): W19.XXXA - Unspecified fall, initial encounter (5) Cholelithiasis Current visit: Yes Status: Acute Category: Medical Code(s): K80.20 - Calculus of gallbladder without cholecystitis without obstruction (6) Thyroid cyst Current visit: Yes Status: Acute Category: Medical Code(s): E04.1 - Nontoxic single thyroid nodule (7) Dilantin toxicity Current visit: Yes Status
--- NOTE | 2017-08-27 19:02 | PC.NURSE ---
Report given to Aster Keita RN
[2017-08-27 19:46] VITALS: BP 111/77; PULSE 85; RESP 16; TEMP 36.3; O2SAT 92
--- NOTE | 2017-08-28 02:21 | PC.NURSE ---
Patient laying in bed resting at this time. Cpap in use. Has rest well most of shift. Has denied any pain, soa or needs entire shift.States he is ready to go back to [facility].Lungs are clear bilat, Resp even and non labored. Encouraged Pt to deep breath, and do some ROM ion Bed to Prevent Muscle breakdown and weakness.Verbalized understanding. IV is patent. States has no needs at this time. Bed locked in low position side rails up x 2. Call light within reach. Will continue to monitor.
[2017-08-28 03:55] VITALS: BP 121/80; PULSE 91; RESP 22; TEMP 37.2; O2SAT 96
[2017-08-28 06:06] LABS: Lamotrigine (Lamictal) 9.5 ug/mL (2.0-20.0)
--- NOTE | 2017-08-28 07:26 | PC.NURSE ---
REPORT GIVEN TO Gemma BARCENAS W/C
--- NOTE | 2017-08-28 07:51 | PC.NURSE ---
0715 - Report received from Aster Keita RN
[2017-08-28 08:00] VITALS: BP 127/69; PULSE 101; RESP 16; TEMP 37.1; O2SAT 93
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
--- NOTE | 2017-08-28 10:13 | PC.NURSE ---
Called report to [facility]. Report given to Susana. Understanding verbalized of all discharge instructions.
== END 2017-08-28 11:14 ==
LOC: ER 05:30 → 2ND 05:54
PROVIDERS: Nurse Practitioner Family; Admitting Provider Family Medicine; Emergency Provider Emergency Medicine; Family Provider Family Medicine; PCP Family Medicine; Visit Provider Emergency Medicine
DX: T42.0X1A Poisoning by hydantoin derivatives, accidental (unintentional), initial encounter (principal); M48.56XA Collapsed vertebra, not elsewhere classified, lumbar region, initial encounter for fracture; Z87.820 Personal history of traumatic brain injury; Z86.718 Personal history of other venous thrombosis and embolism; I10 Essential (primary) hypertension; I69.151 Hemiplegia and hemiparesis following nontraumatic intracerebral hemorrhage affecting right dominant side; I69.198 Other sequelae of nontraumatic intracerebral hemorrhage; Z79.01 Long term (current) use of anticoagulants; R56.9 Unspecified convulsions; Z91.81 History of falling
CPT/HCPCS: 36415; 70371; 70450; 71046; 71250; 72131; 73060; 74176; 80048; 80053; 80168; 80185; 81001; 82150; 82550; 82553; 82803; 83605; 83690; 84484; 85007; 85025; 85610; 85651; 85730; 87040; 92611; 93005; 96365; 96366; 97162; 99285; G0378

== ENCOUNTER 2017-08-29 09:10 | Emergency (ER) | payer MEDICARE, SELFPAY ==
[2017-08-29 09:15] VITALS: BP 126/76; PULSE 96; RESP 20; TEMP 36.9; O2SAT 94; BMI 24.5
--- NOTE | 2017-08-29 09:25 | HMH.EDGENADL ---
ED Disposition Clinical Impression: Seizure disorder Disposition: Xfer SNF Condition on Discharge: Good Instructions: DI for Seizure Disorder -- Adult Additional Instructions: Call Dr. Hernandez for further orders on Dilantin dosing. Referrals: Josh Hernandez MD [Primary Care Provider] - - Critical Care Critical Care Time: No Attestation: On , the high probability of a clinically significant, sudden or life threatening deterioration of the following system(s) required my full and direct attention, intervention and personal management. The time I documented below is in addition to time spent performing reported procedures but includes the following listed in this critical care notation. Medical Decision Making - Deepak Inquiry Pt receiving controlled substance: No Vital Signs: 08/29/17 09:15 08/29/17 15:05 08/29/17 15:07 Temperature 98.4 F 97.8 F 98.4 F Temperature Source Oral Oral Pulse Rate 94 H 99 H Pulse Rate [Right Brachial] 96 H Respiratory Rate 20 18 20 Blood Pressure 104/75 104/75 Blood Pressure [Right Arm] 126/76 Blood Pressure Mean [Right Arm] 92 Blood Pressure Source Automatic Cuff Blood Pressure Source [Right Arm] Automatic Cuff Blood Pressure Position Sitting Supine Blood Pressure Position [Right Arm] Sitting 02 Sat by Pulse Oximetry 94 L Oxygen Delivery Method Room Air Room Air - Lab Data Lab Results 08/29/17 09:35: Phenytoin 9.2 L 08/29/17 09:35: WBC 9.7, RBC 5.25, Hgb 14.9, Hct 43.6, MCV 83.0, MCH 28.3, MCHC 34.1, RDW 13.8, Plt Count 361, MPV 6.9 L, Neut % (Auto) 83.0 H, Lymph % (Auto) 8.3 L, [place] % (Auto) 7.4, Eos % (Auto) 1.0, Baso % (Auto) 0.3, Neut # (Auto) 8.1 H, Lymph # (Auto) 0.8, [place] # (Auto) 0.7, Eos # (Auto) 0.1, Baso # (Auto) 0.0 08/29/17 09:35: Sodium 129 L, Potassium 4.8, Chloride 94 L, Carbon Dioxide 29, Anion Gap 10.8, BUN 9, Creatinine 0.66 L, Estimated Creat Clear 154, Estimated GFR 126, Est GFR ( Amer) 153, Glucose 103, Calcium 8.7, Total Bilirubin 0.4, AST 30, ALT 47, Alkaline Phosphatase 217 H, Total Protein 7.6, Albumin 3.2 L, Globulin 4.4 H, Albumin/Globulin Ratio 0.7 L 08/29/17 09:35: PT 20.6 H, INR 1.89 H Result diagrams: 08/29/17 09:35 08/29/17 09:35 Orders (Tests/Meds): ED MEDICATIONS Discontinued Medications Generic Name Dose Route Start Last Admin Trade Name Homerq PRN Reason Stop Dose Admin Phenytoin Sodium 500 mg/ 110 mls @ 300 mls/hr 08/29/17 11:10 08/29/17 12:33 Sodium Chloride IV 08/29/17 11:32 300 mls/hr ONCE ONE Administration ORDERS Category Date Time Status Lamotrigine (Lamictal) Stat Lab 08/29/17 09:35 Received - CT Data CT Scan: Head Time Received: 11:11 Findings Narrative: No acute change, previous encephalomalacia present Medical Decision Narrative: 11:10 AM: Discussed with Dr. Hernandez. Give Dilantin 500 mg IV, [facility], and he will follow-up for further orders on Dilantin dosing. 11:40 AM: Awake and alert, pleasant, states no complaints. Feels fine. 12:00 PM: Nurse reports that patient's sister called and stated that he had been on to Lamictal in the morning and 3 at night, but that Dr. Hernandez had decreased it to 2 in the morning only. She wonders whether this may be causing his seizures. I relayed this information to Dr. Hernandez. General Adult HPI - General Chief complaint: Altered Mental Status Stated complaint: c/o lethargy Time Seen by Provider: 08/29/17 10:00 - History of Present Illness HPI narrative: History obtained mostly from Dr. Hernandez. He knows the patient from recent admission, he was just discharged from here yesterday. He had been admitted for Dilantin toxicity, aspiration pneumonia. Nursing staff at the [facility] where he [facility] called Dr. Hernandez this morning about 6 AM and told him the patient had a seizure. They then called back again and they had found him unresponsive with unequal pupils.
--- NOTE | 2017-08-29 09:43 | CT_ITS ---
CT head/brain wo con HISTORY: ITS.REASON: seizures ORDERING PHYSICIAN: Manas Dsouza MD PATIENT AGE: 51 years COMPARISON: 08/24/2017 TECHNIQUE: Axial images obtained without contrast. Brain and bone windows reviewed. FINDINGS: Large area of encephalomalacia is once again noted in the left temporal, frontal, parietal, and anterior occipital regions consistent with an old infarction. No midline shift, mass effect, intracranial hemorrhage, or hydrocephalus is evident. There is generalized atrophy with periventricular ischemic gliotic changes. Small area of encephalomalacia is also present in the right frontal area. No mastoid effusion or sinus air-fluid level. There are postsurgical changes of the left infraorbital region. IMPRESSION: 1. No change from 08/24/2017 with no acute finding. 2. 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
[2017-08-29 09:51] LABS: Basophils % 0.3 % (0.1-2.0); Eosinophils # 0.1 K/mm3 (0.0-0.4); Hematocrit 43.6 % (42.0-52.0); Hemoglobin 14.9 g/dL (14.1-18.0); Lymphocytes # 0.8 K/mm3 (0.7-4.5); Lymphocytes % 8.3 K/mm3 (10-50); Mean Corpuscular HGB Conc 34.1 g/dL (31.8-35.4); Mean Corpuscular Hemoglobin 28.3 pg (27.0-31.2); Mean Platelet Volume 6.9 fl (7.4-10.4); Monocytes # 0.7 K/mm3 (0.1-1.0); Monocytes % 7.4 % (1.7-9.3); Neutrophils # 8.1 K/mm3 (1.8-7.8); Platelet Count 361 K/mm3 (142-424); Red Blood Count 5.25 M/mm3 (4.60-6.20); Red Cell Distribution Width 13.8 % (11.5-17.5); White Blood Count 9.7 K/mm3 (4.8-10.8)
[2017-08-29 09:57] LABS: Alanine Aminotransferase 47 U/L (12-78); Albumin Level 3.2 gm/dL (3.4-5.0); Albumin/Globulin Ratio 0.7 (1.1-1.8); Alkaline Phosphatase 217 U/L (46-116); Anion Gap 10.8 mEq/L (5-15); Aspartate Amino Transferase 30 U/L (15-37); Bilirubin,Total 0.4 mg/dL (0.2-1.0); Blood Urea Nitrogen 9 mg/dL (7-18); Calcium 8.7 mg/dL (8.5-10.1); Carbon Dioxide 29 mmol/L (21.0-32.0); Chloride 94 mmol/L (98-107); Creatinine Clearance Estimated 154 mL/min (0-300); Creatinine,Serum 0.66 mg/dL (0.70-1.30); Estimated Glomerular Filt Rate 126 ml/min (>60); GFR (African American) 153 ML/MIN (>60); Globulin 4.4 gm/dl (1.3-3.2); Glucose 103 mg/dL (74-106); INR 1.89 (0.9-1.1); Potassium 4.8 mmoL/L (3.5-5.1); Prothrombin Time 20.6 seconds (9.4-11.8); Sodium 129 mmol/L (136-145); Total Protein,Serum 7.6 gm/dL (6.4-8.2)
[2017-08-29 10:16] LABS: Phenytoin (Dilantin) 9.2 ug/mL (10-20)
--- NOTE | 2017-08-29 13:41 | PC.NURSE ---
TO BE DISCHARGED BACK TO [facility]. REPORT CALLED TO EDSON. PATIENTS SISTER NOTIFIED OF DISCHARGE BACK TO [facility]. CONDITION STABLE. [facility] NOTIFIED OF TRANSFER
[2017-08-29 15:05] VITALS: BP 104/75; PULSE 94; RESP 18; TEMP 36.6; O2SAT 96
[2017-08-29 15:07] VITALS: BP 104/75; PULSE 99; RESP 20; TEMP 36.9
[2017-09-04 06:23] LABS: Lamotrigine (Lamictal) 1.5 ug/mL (2.0-20.0)
== END 2017-08-29 15:09 ==
PROVIDERS: Emergency Provider Emergency Medicine; Family Provider Family Medicine; PCP Emergency Medicine
DX: R41.82 Altered mental status, unspecified (principal); R53.1 Weakness; R56.9 Unspecified convulsions; Z79.01 Long term (current) use of anticoagulants; Z86.718 Personal history of other venous thrombosis and embolism; E78.5 Hyperlipidemia, unspecified; I10 Essential (primary) hypertension; Z79.899 Other long term (current) drug therapy
CPT/HCPCS: 70450; 80053; 80168; 80185; 85025; 85610; 96365; 99282